=== PATIENT | female | born 1995 | race Caucasian/White ===

== ENCOUNTER 2024-04-01 23:46 | Emergency (ER) | payer OTHER, SELFPAY ==
--- NOTE | ~2024-04-01 | XR_ITS ---
Clinical Indication: Shortness of breath PA and lateral views of the chest: Comparison: None Findings: The lungs are clear, without evidence of focal consolidation or pleural effusion. Cardiome diastinal silhouette is within normal limits. Bones and soft tissues are unremarkable. Impression: Normal chest. Reviewed, dictated and finalized at [facility]. Impression: Normal chest.
[2024-04-01 23:47] VITALS: BP 112/78; PULSE 142; RESP 18; TEMP 37.1; O2SAT 99
[2024-04-02 00:15] LABS: Basophils Percent Auto 0.1 % (0.2-1.2); Eosinophils Absolute Auto 0.1 K/mm3 (0-0.3); Eosinophils Percent Auto 1.2 % (0-4.4); Hematocrit 39.5 % (37.0-47.0); Hemoglobin 13.4 g/dL (12.0-15.0); Immature Granulocyte Absolute 0.03 K/mm3 (0.00-0.031); Immature Granulocyte Percent A 0.4 % (0-0.5); Lymphocytes Absolute Auto 0.48 K/mm3 (0.9-3.2); Lymphocytes Percent Auto 6.2 % (18.3-44.2); Mean Corpuscular HGB Conc 33.9 g/dl (32-36); Mean Corpuscular Hemoglobin 29.8 pg (26-34); Mean Platelet Volume 9.4 fl (7.4-10.4); Monocytes Absolute Auto 0.6 K/mm3 (0.1-0.6); Monocytes Percent Auto 7.5 % (2.6-8.5); Neutrophils Absolute Auto 6.6 K/mm3 (1.3-6.7); Neutrophils Percent Auto 84.6 % (45.5-73.1); Platelet Count Result 258 k/mm3 (150-375); Red Blood Count 4.49 M/mm3 (4.2-5.4); Red Cell Distribution Width 11.9 % (11.5-14.5); White Blood Count 7.8 K/mm3 (4.5-10.0)
--- NOTE | 2024-04-02 00:27 | ECG_ITS ---
Test Date: 2024-04-02 00:00:27 Measurements Intervals [place] Rate: 131 P: 40 [place]: 154 QRS: 44 QRSD: 86 T: 59 QT: 333 QTc: 493 Interpretive Statements SINUS TACHYCARDIA NONSPECIFIC T-WAVE ABNORMALITY No previous ECG available for comparison Electronically Signed On 04-02-2024 14:42:27 CDT by Heron Diallo M.D.
--- NOTE | 2024-04-02 00:27 | PC.NURSE ---
pt in wheelchair to imaging at this time
[2024-04-02 00:34] LABS: Alanine Aminotransferase 28 U/L (6-35); Albumin Level 4.3 g/dL (3.5-5.1); Alkaline Phosphatase 49 U/L (38-126); Anion Gap 10 mmol/L (4-12); Aspartate Amino Transferase 26 U/L (14-36); Bilirubin,Total 0.6 mg/dL (0.2-1.3); Blood Urea Nitrogen 11 mg/dL (7-17); Calcium 9.3 mg/dL (8.4-10.2); Carbon Dioxide 22 mmol/L (22-30); Chloride 104 mmol/L (98-107); Estimated Glomerular Filt Rate > 60; Glucose 128 mg/dL (65-110); Potassium 3.5 mmol/L (3.4-5.0); Sodium 136 mmol/L (137-145)
[2024-04-02 00:51] LABS: Influenza A QL RT-PCR Negative (Negative); Influenza B QL RT-PCR Negative (Negative); RSV RNA, RT-PCR Negative (Negative); SARS-CoV-2 RNA PCR Positive (Negative)
[2024-04-02 02:45] VITALS: BP 109/77; PULSE 105; RESP 15; O2SAT 100; O2SAT 98
[2024-04-02] MEDS: BENZONATATE 100 MG CAPSULE 200 MG PO (03:00)
[2024-04-02] MEDS: PROCHLORPERAZINE EDISYLATE 10 MG/2 ML VIAL IV PUSH (03:01)
[2024-04-02] MEDS: diphenhydrAMINE HCl INJ 50 MG/ML VIAL IV PUSH (03:01)
[2024-04-02] MEDS: KETOROLAC 30 MG/ML VIAL (*BKC) IV PUSH (03:01)
--- NOTE | 2024-04-02 04:06 | ED.GENADULT ---
HPI - General Adult General Chief complaint: Upper Respiratory Infection Stated complaint: covid symptoms Time Seen by Provider: 04/02/24 02:27 History of Present Illness HPI narrative: Patient is a 28-year-old female who presents emergency department chief complaint of COVID patient reports that she was exposed about a week ago to COVID and now she is having body aches headaches shortness of breath cough feeling dizzy and nausea. Patient reports that she does not feel well reports that she was also feeling as though her heart was beating fast. Related Data Allergies Allergy/AdvReac Type Severity Reaction Status Date / Time martin pepper [green pepper] Allergy Mild Verified 04/02/10 20:27 Review of Systems Review of Systems: A 10 system review of systems was completed on the patient and is negative except for what is stated in the HPI. Nursing and ancillary documentation was reviewed. Exam Narrative: GENERAL: Well-appearing, well-nourished, and in no acute distress. HEAD: Normocephalic, atraumatic. EYES: PERRLA and EOMI. ENT: Nares clear, no rhinorrhea or epistaxis. Mucous membranes moist. NECK: Supple. CHEST: Clear to auscultation. No respiratory distress. HEART: Regular rate and rhythm. No murmur heard. Normal peripheral pulses. ABDOMEN: Soft, nontender, nondistended, normal active bowel sounds. EXTREMITIES: Normal range of motion. No edema. SKIN: Warm, dry, no rash. NEURO: No focal deficits. Alert and oriented x3. PSYCH: Normal mood and affect. Course Vital Signs Vital signs: Vital Signs Temperature 37.1 C 04/01/24 23:47 Pulse Rate 142 H 04/01/24 23:47 Respiratory Rate 18 04/01/24 23:47 Blood Pressure 112/78 04/01/24 23:47 Pulse Oximetry 99 04/01/24 23:47 Oxygen Delivery Room Air 04/01/24 23:47 Temperature 37.1 C 04/01/24 23:47 Pulse Rate 142 H 04/01/24 23:47 Respiratory Rate 18 04/01/24 23:47 Blood Pressure 112/78 04/01/24 23:47 Pulse Oximetry 99 04/01/24 23:47 Oxygen Delivery Room Air 04/01/24 23:47 Medical Decision Making MDM Narrative Medical decision making narrative: Differential diagnosis includes viral illness, he moved, dehydration, Chest x-ray showed no focal infiltrate COVID was positive Laboratory studies showed a white count of 7.8 electrolytes were otherwise within normal Patient received IV fluids antiemetics Toradol and antitussives. The patient is feeling much better this time will be discharged home to follow-up with primary care provider Vital Signs Vital Signs: Vital Signs Temperature 37.1 C 04/01/24 23:47 Pulse Rate 142 H 04/01/24 23:47 Respiratory Rate 18 04/01/24 23:47 Blood Pressure 112/78 04/01/24 23:47 Pulse Oximetry 99 04/01/24 23:47 Oxygen Delivery Room Air 04/01/24 23:47 Temperature 37.1 C 04/01/24 23:47 Pulse Rate 142 H 04/01/24 23:47 Respiratory Rate 18 04/01/24 23:47 Blood Pressure 112/78 04/01/24 23:47 Pulse Oximetry 99 04/01/24 23:47 Oxygen Delivery Room Air 04/01/24 23:47 Lab Data 04/02/24 00:07 04/02/24 00:08 Labs: Lab Results 04/01/24 04/02/24 04/02/24 Range/Units 23:55 00:07 00:08 WBC 7.8 (4.5-10.0) K/mm3 RBC 4.49 (4.2-5.4) M/mm3 Hgb 13.4 (12.0-15.0) g/dL Hct 39.5 (37.0-47.0) % MCV 88.0 (80-100) fl MCH 29.8 (26-34) pg MCHC 33.9 (32-36) g/dl RDW 11.9 (11.5-14.5) % Plt Count 258 (150-375) k/mm3 MPV 9.4 (7.4-10.4) fl Immature Gran % (Auto) 0.4 (0-0.5) % Neut % (Auto) 84.6 H (45.5-73.1) % Lymph % (Auto) 6.2 L (18.3-44.2) % [place] % (Auto) 7.5 (2.6-8.5) % Eos % (Auto) 1.2 (0-4.4) % Baso % (Auto) 0.1 L (0.2-1.2) % Lymph # (Auto) 0.48 L (0.9-3.2) K/mm3 [place] # (Auto) 0.6 (0.1-0.6) K/mm3 Eos # (Auto) 0.1 (0-0.3) K/mm3 Baso # (Auto) 0.0 (0.0-0.1) K/mm3 Abs Immat Gran (auto) 0.03 (0.00-0.031) K/mm3 Absolute Neuts (
[2024-04-02 04:29] VITALS: BP 102/68; PULSE 103; RESP 15; TEMP 37.3; O2SAT 98
== END 2024-04-02 04:31 | disposition home or self-care (01) ==
PROVIDERS: Emergency Provider Emergency Medicine
DX: U07.1 COVID-19 (principal); J06.9 Acute upper respiratory infection, unspecified
CPT/HCPCS: 36415; 71046; 80053; 85025; 87637; 93005; 96374; 96375; 99284; A9270; J0780; J1200; J1885

== ENCOUNTER 2024-08-08 08:32 | Emergency (ER) | payer OTHER, SELFPAY ==
--- NOTE | ~2024-08-08 | XR_ITS ---
EXAMINATION: XR sacrum coccyx min 2V DATE: 08/08/2024 09:27 INDICATION: Tailbone injury post fall TECHNIQUE: AP view of the sacrum, AP view of the coccyx and lateral views of the sacrum and coccyx we re obtained. COMPARISON: None. FINDINGS: Nondisplaced fracture with interruption of the anterior cortical line and subtle linear lucency exten ding across the caudal aspect of the sacrum on the lateral projection at the level of S4-S5. There is 2 mm caudal subluxation of the coccyx with respect to the distal sacrum but without evident fracture and with relatively uniform disc space most likely developmental although could not absolutely exclu de an age-indeterminate traumatic subluxation. 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 The sacroiliac and bilateral hip joint spaces appear relatively preserved. IMPRESSION: 1. Nondisplaced fracture at S4-S5 Reviewed, dictated and finalized at location [facility]
[2024-08-08 08:39] VITALS: BP 130/94; PULSE 100; RESP 14; TEMP 36.8; O2SAT 100
[2024-08-08] MEDS: LIDOCAINE 5% PATCH 1 PATCH TRANSDERM (09:05)
[2024-08-08] MEDS: ACETAMINOPHEN 500 MG TABLET 1000 MG PO (09:06)
[2024-08-08 10:19] VITALS: BP 129/85; PULSE 67; RESP 15; O2SAT 99
--- NOTE | 2024-08-08 16:19 | ED.GENADULT ---
HPI - General Adult General Chief complaint: Extremity Injury, Lower Stated complaint: FALL, back pain Time Seen by Provider: 08/08/24 08:47 History of Present Illness HPI narrative: patient fell at work when a cart got pulled from under her, and landed on her tailbone, has been hurting quite a bit especially to sit on it. No difficulty walking, no numbness or weakness or tingling, or difficulty with urinating Related Data Allergies Allergy/AdvReac Type Severity Reaction Status Date / Time No Known Allergies Allergy Verified 08/08/24 08:44 Exam Narrative: EXAMINATION OF ORGAN SYSTEMS/BODY AREAS: Constitutional: Vital signs per nursing GENERAL:[No acute distress, non-toxic appearing.] HEAD: Normal with no signs of head trauma. EYES: EOMI, conjunctiva normal ENT: Hearing grossly intact LUNGS: Nonlabored breathing. HEART: [Regular rate and rhythm] ABD: [Soft], [nontender to palpation] EXT: Normal range of motion; able ambulate. Some tenderness to left side tailbone SKIN: [No rashes or lesions.] NEURO: [Alert and oriented x 3. No gross focal sensory or strength deficits.] PSYCH: Normal affect Course Vital Signs Vital signs: Vital Signs Temperature 98.3 F 08/08/24 08:39 Pulse Rate 100 08/08/24 08:39 Respiratory Rate 14 08/08/24 08:39 Blood Pressure 130/94 H 08/08/24 08:39 Pulse Oximetry 100 08/08/24 08:39 Oxygen Delivery Room Air 08/08/24 08:39 Temperature 98.3 F 08/08/24 08:39 Pulse Rate 67 08/08/24 10:19 Respiratory Rate 15 08/08/24 10:19 Blood Pressure 129/85 08/08/24 10:19 Pulse Oximetry 99 08/08/24 10:19 Oxygen Delivery Room Air 08/08/24 08:39 Medical Decision Making [facility] Narrative Medical decision making narrative: patient presents with left-sided tailbone pain after injury, she is well-appearing, no neurovascular deficits Including no saddle anesthesia, difficulty ambulating, difficulty with urination. pain medication given, x-ray unfortunately does show possible lateral sacral fracture. discussed with patient, give pain medication and work note and have her follow-up with her PCP with strict return precautions. She is agreeable to this plan. Vital Signs Vital Signs: Vital Signs Temperature 98.3 F 08/08/24 08:39 Pulse Rate 100 08/08/24 08:39 Respiratory Rate 14 08/08/24 08:39 Blood Pressure 130/94 H 08/08/24 08:39 Pulse Oximetry 100 08/08/24 08:39 Oxygen Delivery Room Air 08/08/24 08:39 Temperature 98.3 F 08/08/24 08:39 Pulse Rate 67 08/08/24 10:19 Respiratory Rate 15 08/08/24 10:19 Blood Pressure 129/85 08/08/24 10:19 Pulse Oximetry 99 08/08/24 10:19 Oxygen Delivery Room Air 08/08/24 08:39 Discharge Plan Discharge Clinical Impression: Closed sacral fracture Patient Disposition: Home, Self-Care Condition: Stable Instructions: Sacral Fracture (ED) Additional Instructions: use ice, get a donut pillow to sit on, and take pain medications as needed, follow-up with your primary care doctor if you start having any concerning issues such as increasing pain, new numbness or weakness to your legs, come back to the ER immediately. Patient Language: Surinamese Prescriptions: New acetaminophen [Tylenol Extra Strength] 500 mg tablet 1,000 mg PO Q6H PRN (Reason: pain) Qty: 50 0RF lidocaine 5 % adhesive patch,medicated 1 patch topical DAILY Qty: 15 0RF Rx Instructions: leave on most painful area for up to 12 hrs ibuprofen 600 mg tablet 600 mg PO TID PRN (Reason: fever or pain) Qty: 30 0RF oxycodone 5 mg capsule 5 mg PO Q8H PRN (Reason: pain) Qty: 14 0RF No Action benzonatate 200 mg capsule 200 mg PO TID PRN (Reason: cough) Qty: 21 0RF ondansetron 4 mg tablet,disintegrating 4 mg PO Q8H PRN (Reason: nausea and vomiting) Qty: 10 0RF Follow-up/Referrals: UNKNOWN,DOCTOR [Primary Care Provider] - Stand Alone Forms: Work/School Release IP
== END 2024-08-08 10:21 | disposition home or self-care (01) ==
PROVIDERS: Emergency Provider Emergency Medicine
DX: S32.19XA Other fracture of sacrum, initial encounter for closed fracture (principal); W17.89XA Other fall from one level to another, initial encounter
CPT/HCPCS: 72220; 99283; A9270

== ENCOUNTER 2024-11-15 02:53 | Emergency (ER) | payer OTHER, SELFPAY ==
[2024-11-15 02:54] VITALS: BP 118/84; PULSE 94; RESP 16; TEMP 36.1; O2SAT 98
--- OUTSIDE RECORDS SUMMARY | 2024-11-15 02:56 | XMS_ITS | Data Portability ---
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 [address], 02/20/2023 15:11:41 02/21/20 23 02/20/2023 urina lysis , dipst ick Protein Negati ve Not Available [address], [address], 02/20/2023 15:11:41 02/21/20 23 02/20/2023 urina lysis , dipst ick pH 5.0 Not Available [address], [address], 02/20/2023 15:11:41 02/21/20 23 02/20/2023 urina lysis , dipst ick Blood Negati ve Not Available [address], [address], 02/20/2023 15:11:41 02/21/20 23 02/20/2023 urina lysis , dipst ick Specific [place] 1.000 Not Available [address], [address], 02/20/2023 15:11:41 02/21/20 23 02/20/2023 urina lysis , dipst ick Ketone Negati ve Not Available [address], [address], 02/20/2023 15:11:41 02/21/20 23 02/20/2023 urina lysis , dipst ick Bilirubin Negati ve Not Available [address], [address], 02/20/2023 15:11:41 02/21/20 23 02/20/2023 urina lysis , dipst ick Glucose Negati ve Not Available [address], [address], 02/20/2023 15:11:41 02/21/20 23 02/20/2023 urina lysis , dipst ick Appearance Clear Not Available [address], [address], 02/20/2023 15:11:41 02/21/20 23 02/20/2023 urina lysis , dipst ick Color Yellow Not Available [address], [address], 02/20/2023 15:11:41 Result Notes None recorded. Problems No Known Problems Procedures Surgical History Date Name Laterality Status Provider Name and Address Organization Details Recorded Time 3 Nexplanon Insertion cancelled [facility] [employer] Plan IV 03/07/2023 16:24:35 3 Date of Last Pap Smear [facility] [address] [facility], [place], [address], [facility] [employer] IV 01/10/2023 17:09:40 Imaging Results None recorded. Procedure Notes None recorded. Medical Equipment None Reported. Allergies No known drug allergies Medications Name Sig Start Date Stop Date Status Note LastModified by Organization Details LastModified Time amoxicill in 500 mg capsule TAKE ONE CAPSULE BY MOUTH TWICE DAILY FOR 10 DAYS 01/10 completed Not Available Not Available Not Available metformin 500 mg tablet 1 PO daily 05/19 completed Metformi n HCl 500mg Tablet RxNorm: 761976 Allow Substitu tion: True Refill Denied: No For Problem: Missed period Not Available Not Available Not Available terconazo le 0.4 % vaginal cream insert 1 applicat orful by vaginal route once daily at bedtime for 7 days 06/12 completed terconaz ole 0.4 % Vaginal Cream RxNorm: 687169 Allow Substitu tion: True Refill Denied: No Edited by: chayo rosado([facility] Kalyn ) on 06/12/20 Stopped by: chayo rosado([facility] ) on 06/12/20 Not Available Not Available Not Available Aviane 0.1 mg-20 mcg tablet Take 1 tablet(s ) by mouth daily as directed . 01/18 completed Aviane 28 20mcg/0. 1mg Tablet Allow Substitu tion: True Refill Denied: No Not Available Not Available Not Available Vitamin B-6 25 mg tablet Take 1 tablet PO three times daily 11/05 completed Vitamin B6 25mg Tablet Allow Substitu tion: True Refill Denied: No Not Available Not Available Not Available fluconazo le 150 mg tablet TAKE 1 TABLET BY MOUTH NOW. MAY REPEAT IN 3 DAYS IF NO RESPONSE 03/07 completed Not Available Not Available Not Available clomiphen e citrate 50 mg tablet 1 po days 3-7 of cycle 03/20 completed Clomiphe ne Citrate 50mg Tablet Allow Substitu tion: True Refill Denied: No Not Available Not Available Not Available hydrocodo ne 5 mg-acetam inophen 325 mg tablet 1 p.o. q12h prn 08/02 completed Not Available Not Available Not Available ondansetr on HCl 4 mg tablet take 2 tablets (8 mg) by oral route every 8 hours as needed for nausea/v omiting 08/31 completed ondanset vilma HCL 4 mg oral tablet RxNorm: 603384 Allow Substitu tion: True Refill Denied: No Edited by: michelle(Sophia Jimenez ) on 08/31/19 Stopped by: michelle(Sophia Jimenez ) on 08/31/19 Not Available Not Available Not Available prednison e 20 mg tablet TAKE 2 TABLETS BY MOUTH EVERY DAY WITH FOOD FOR 4 DAYS. DO NOT TAKE WITH ASPIRIN OR NSAIDS SUCH ALEVE OR IBUPROFE N ETC 01/10 completed Not Available Not Available Not Available terconazo le 0.8 % vaginal cream 1 applicat orful 0.8% cream intravag inally at bedtime for 3 days 12/20 completed Terconaz ole 0.8% Vaginal Cream RxNorm: 025039 Allow Substitu tion: True Refill Denied: No Not Available Not Available Not Available clotrimaz ole 1 % vaginal cream Apply to vulva QHS x5 nights 05/31 completed Clotrima zole 1% Vaginal Cream Allow Substitu tion: True Refill Denied: No Not Available Not Available Not Available metronida zole 500 mg tablet TAKE 1 TABLET BY MOUTH EVERY 12 HOURS FOR 7 DAYS 03/07 completed Not Available Not Available Not Available sulfameth oxazole 800 mg-trimet hoprim 160 mg tablet take 1 tablet by oral route 2 times per day for 3 days 01/20 completed sulfamet hoxazole -trimeth oprim 800-160 mg oral tablet RxNorm: 068595 Allow Substitu tion: True Refill Denied: No Edited by: diane(Alexander George ) on 01/21/20 Stopped by: diane(Alexander George ) on 01/21/20 Not Available Not Available Not Available Reglan 10 mg tablet 1 tab po q 8hrs prn 07/30 completed Reglan 10mg Tablet RxNorm: 103101 Allow Substitu tion: True Refill Denied: No Not Available Not Available Not Available tramadol 50 mg tablet TAKE 1 TABLET BY MOUTH EVERY 6 HOURS 01/12 completed Not Available Not Available Not Available Macrobid 100 mg capsule take 1 capsule (100 mg) by oral route 2 times per day with food for 7days 06/17 completed Macrobid 100 mg oral capsule RxNorm: 117841 Allow Substitu tion: True Refill Denied: No Edited by: praveena andrews(Shira Schultz ) on 06/17/20 Stopped by: praveena andrews(Shira Schultz ) on 06/17/20 Not Available Not Available Not Available Vitamin tablet Take 1 taablet by mouth daily. 07/19 completed Multivit shipman Tablet Allow Substitu tion: True Refill Denied: No Not Available Not Available Not Available nystatin- triamcino lone 100,000 unit/gram -0.1 % topical ointment apply to the affected area(s) by topical route 2 times per day 07/29 completed nystatin -triamci nolone 100,000- 0.1 unit/gra m-% Topical Ointment RxNorm: 3621070 Allow Substitu tion: True Refill Denied: No Edited by: Dionisio Bahena ) on 07/29/20 Stopped by: megan cali(Dionisio Hairston ) on 07/29/20 Not Available Not Available Not Available Zofran 8 mg tablet 1/2 tab po q 6 -8hrs PRN 11/04 completed Zofran 8mg Tablet RxNorm: 193638 Allow Substitu tion: True Refill Denied: No Not Available Not Available Not Available amoxicill in 875 mg tablet TAKE 1 TABLET BY MOUTH EVERY 12 HOURS FOR 10 DAYS 08/02 completed Not Available Not Available Not Available Metrogel Vaginal 0.75 % (37.5 mg/5 gram) insert 1 applicat orful (37.5 mg) by vaginal route once daily at bedtime for 5 days 12/06 completed Metrogel Vaginal 0.75 % Vaginal Gel RxNorm: 792353 Allow Substitu tion: True Refill Denied: No Edited by: Kelly Black ) on 12/07/19 Stopped by: Kelly Black ) on 12/07/19 Not Available Not Available Not Available Keflex 250 mg capsule take 1 capsule (250 mg) by oral route every 6 hours 01/07 completed Keflex 250 mg oral capsule RxNorm: 692164 Allow Substitu tion: True Refill Denied: No Edited by: mirna(Sharita Llamas ) on 01/08/20 Stopped by: mirna(Sharita Llamas ) on 01/08/20 Not Available Not Available Not Available cephalexi n 500 mg capsule TAKE 1 CAPSULE BY MOUTH THREE TIMES DAILY 02/20 completed Not Available Not Available Not Available Cipro 500 mg tablet Take 1 tab bid for 3 days for her UTI 11/04 completed Cipro 500mg Tablet RxNorm: 484393 Allow Substitu tion: True Refill Denied: No For Problem: UTI Not Available Not Available Not Available vitamin-f errous fumarate 28 mg iron-foli c acid 800 mcg tablet 1 tab po every day 12/21 completed vit-iron fum-foli c ac 28 mg iron- 800 mcg oral tablet Allow Substitu tion: True Refill Denied: No Edited by: diane(Alexander George ) on 12/22/19 Stopped by: diane(Alexander George ) on 12/22/19 Not Available Not Available Not Available misoprost ol [address] 4 tablets vaginall y and repeat in 12 hours if no cramping 12/06 completed miSOPROS pardeep 200 mcg oral tablet RxNorm: 478617 Allow Substitu tion: True Refill Denied: No Edited by: Kelly Black ) on 12/07/19 Stopped by: Kelly Black ) on 12/07/19 Not Available Not Available Not Available Zofran ODT 8 mg disintegr ating tablet Dissolve 1 tablet PO q 6 hours PRN nausea 10/31 completed Zofran ODT 8mg Tablets, Orally Disinteg rating RxNorm: 068986 Allow Substitu tion: True Refill Denied: No Not Available Not Available Not Available hydroxyzi ne HCl 25 mg tablet one tablet by mouth qid prn anxiety 03/16 completed Hydroxyz ine HCl 25mg Tablet Allow Substitu tion: True Refill Denied: No Not Available Not Available Not Available nystatin 100,000 unit/gram topical powder APPLY TO THE AFFECTED AREA(S) BY TOPICAL ROUTE 2 TIMES PER DAY 02/20 completed Not Available Not Available Not Available ibuprofen 600 mg tablet TAKE 1 TABLET BY MOUTH EVERY 6 HOURS NEEDED FOR MILD PAIN 01/12 completed Not Available Not Available Not Available albuterol sulfate HFA 90 mcg/actua tion aerosol inhaler INHALE 2 PUFFS BY MOUTH EVERY 4 HOURS NEEDED 02/20 completed Not Available Not Available Not Available Cipro 250 mg tablet 1 tab po bid x 3 days 01/12 completed Cipro 250mg Tablet RxNorm: 287719 Allow Substitu tion: True Refill Denied: No Not Available Not Available Not Available amoxicill in 875 mg-potass ium clavulana te 125 mg tablet TAKE 1 TABLET BY MOUTH EVERY 12 HOURS FOR 10 DAYS 01/10 completed Not Available Not Available Not Available amoxicill in 500 mg-potass ium clavulana te 125 mg tablet TAKE 1 TABLET BY MOUTH EVERY 12 HOURS FOR 7 DAYS 09/11 completed Not Available Not Available Not Available hydroxyzi ne pamoate 25 mg capsule TAKE 1 CAPSULE BY MOUTH EVERY 6 HOURS NEEDED 01/12 completed Not Available Not Available Not Available NuvaRing 0.12 mg-0.015 mg/24 hr vaginal Insert 1 vaginal ring in vagina for 28 days then remove the ring and replace with another ring. 04/07 completed NuvaRing 0.015mg/ 0.12mg Vaginal Ring RxNorm: 4397975 Allow Substitu tion: True Refill Denied: No For Problem: Initiati on of other contrace ptive measures Not Available Not Available Not Available azithromy alana 500 mg tablet take 2 tabs ( 1 gm) po once 01/20 completed azithrom ycin 500 mg oral tablet RxNorm: 267210 Allow Substitu tion: True Refill Denied: No Edited by: diane(Alexander George ) on 01/21/20 Stopped by: diane(Alexander George ) on 01/21/20 21 Not Available Not Available Not Available escitalop marmiar 10 mg tablet TAKE 1 TABLET BY MOUTH AT BEDTIME active Not Available Not Available No t Available Nataly 0.35 mg tablet Take 1 tablet(s ) by mouth daily as directed . 02/16 completed Nataly 0.35mg Tablet Allow Substitu tion: True Refill Denied: No Not Available Not Available Not Available Zofran 07/10 completed Zofran RxNorm: 980175 Allow Substitu tion: True Refill Denied: No Not Available Not Available Not Available Compazine 1 tab po q6hr prn nausea 12/02 completed Compazin e 10mg Tablets RxNorm: 437430 Allow Substitu tion: True Refill Denied: No Not Available Not Available Not Available BuSpar Take 1/2 tablet(s ) by mouth bid 04/01 completed BuSpar 15mg Tablet RxNorm: 900983 Allow Substitu tion: True Refill Denied: No Not Available Not Available Not Available 07/08 completed Allow Substitu tion: False Refill Denied: No Refill DateOccu rred: 12/16/19 20 Edited by: Dionisio Bahena ) on 07/08/20 Stopped by: Dionisio Bahena ) on 07/08/20 20 Not Available Not Available Not Available Implanon UUD (USE DIRECTED ) left arm 08/01 completed Implanon 68mg Implant RxNorm: 662217 Allow Substitu tion: True Refill Denied: No Refill DateOccu rred: 09/18/19 13 Not Available Not Available Not Available doxylamin e succinate 1/2 tab po tid prn nausea 12/03 completed Doxylami ne Succinat e 25mg Tablet Allow Substitu tion: True Refill Denied: No Not Available Not Available Not Available Nexplanon 68 mg subdermal implant Inject by subcutan eous route. active Not Available Not Available No t Available ID NOW COVID-19 Test Kit TEST DIRECTED 08/02 completed Not Available Not Available Not Available COVID-19 test specimen collectio n TEST DIRECTED TODAY 08/02 completed Not Available Not Available Not Available Nextstell is 3 mg-14.2 mg (28) tablet Take 1 tablet every day by oral route for 21 days. 02/20 completed Not Available Not Available Not Available BinaxNOW COVID-19 Ag Self Test kit TEST DIRECTED TODAY 01/10 completed Not Available Not Available Not Available Vitals Date Recorded Body height Body mass index (BMI) Body weight Body temperature Systolic blood pressure Diastolic blood pressure Provider Name and Address Organization Details Last Updated DateTime 1 149.86 cm 33.7 kg/m2 40815.9 3 g 97.9 [degF] 118 mm[Hg] 72 mm[Hg] Brie Strange [facility] 1 12:11:50 Date Recorded Body height Body mass index (BMI) Body weight Body temperature Systolic blood pressure Diastolic blood pressure Provider Name and Address Organization Details Last Updated DateTime 2 149.86 cm 34.7 kg/m2 02288.8 9 g 97 [degF] 124 mm[Hg] 80 mm[Hg] Brie Strange [facility] 2 10:50:03 Date Recorded Body height Body mass index (BMI) Body weight Body temperature Provider Name and Address Organization Details Last Updated DateTime 01/10/2023 149.86 cm 32.1 kg/m2 80760.47 g 97.5 [degF] Saskia Gonzales [facility] 01/10/2023 17:02:35 Date Recorded Body height Body mass index (BMI) Body weight Systolic blood pressure Diastolic blood pressure Provider Name and Address Organization Details Last Updated DateTime 02/20/2023 149.86 cm 30.3 kg/m2 09886.86 g 122 mm[Hg] 80 mm[Hg] Glendy Mcrae [facility] 3 15:06:33 Social History Question Answer Notes LastModified by Organizat ion Details LastModified Time Tobacco Smoking Status Current Every Day Smoker Brie kaye [facility] 08/02/2021 12:19:27 What Is Your Level Of Alcohol Consumption? Occasional Information not available 08/02/2021 How Many Times Per Week Do You Consume Alcohol? 1-2 Times Per Week Information not available 08/02/2021 If You Are , What Was Your Level Of Alcohol Consumption Prior To ? None Information not available 08/02/2021 Are You Blind Or Do You Have Difficulty Seeing? No Information not available 08/02/2021 Are You Currently Employed? Yes [email or web address] Information not available 01/10/2023 Are You Deaf Or Do You Have Serious Difficulty Hearing? No Information not available 08/02/2021 What Type Of Diet Are You Following? REGULAR Information not available 08/02/2021 What Is The Highest Grade Or Level Of School You Have Completed Or The Highest Degree You Have Received? [id number] [email or web address] Information not available 01/10/2023 How Many Children Do You Have? 0 [email or web address] Information not available 03/07/2023 What Is Your Relationship Status? Single Information not available 08/02/2021 Are You Sexually Active? Yes Information not available 08/02/2021 How Much Tobacco Do You Smoke? 0.25 PPD Information not available 08/02/2021 Do You Use Any Illicit Or Recreational Drugs? No Information not available 08/02/2021 Do You Or Have You Ever Used Any Other Forms Of Tobacco Or Nicotine? No Information not available 08/02/2021 Sex: Female Functional Status Question Answer Note LastModified by Organization D etails LastModified Time What is your exercise level? None Information not available 08/02/2021 Mental Status None recorded. Family History Relationship Description Onset Age of this Age Resolved Age Notes LastModified by Organization Details LastModified Time Father No current problems or disability [email or web address] Not available 01/10 14:35:56 Mother No current problems or disability [email or web address] Not available 01/10 14:35:56 Medical History Condition Response Other Cancer N High Blood Pressure N Colon Cancer N Cytomegalovirus N Hyperthyroidism N Breast Cancer N MRSA N Herpes (HSV) N Blood Transfusion N Lung Cancer N Depression N Hypothyroidism N Incontinence N Panic Attacks N Neurological Disorder N Deep Vein Thrombosis N Anxiety Disorder N Autoimmune disease N Arthritis N Tuberculosis/Positive PPD N Shingles N Polycystic Ovarian Syndrome N Cervical Cancer N Hematuria N Chlamydia N Stroke N Varicosities N Seasonal allergies N Crohn's Disease N Alzheimer's/Dementia N COPD/Emphysema N Endometriosis N HPV/Genital Warts N IBS (Irritable Bowel Syndrome) N History of Abnormal Pap N High Cholesterol N Liver Disease N Kidney Infection N Fibromyalgia N Ulcer N Kidney Disease N HIV N Gallbladder disease N Sickle Cell Disease/Trait N Von Willebrand disease N ADD/ADHD N Eating Disorder N Anemia N Diabetes Mellitus (non-insulin dependent ) N Multiple Sclerosis N Ovarian Problems N Gonorrhea N Frequent Urinary Tract infections N Osteopenia N Headaches/migraines N GERD (reflux) N Ovarian Cancer N Diabetes (insulin dependent) N Seizures/Epilepsy N Fibroids N Asthma N Heart Attack N Lupus N Endometrial Cancer N Rubella N Blood Clotting Disorder N Bipolar Disorder N Diabetes Mellitus (during ) N Ulcerative Colitis N Hepatitis N Heart Disease N Pulmonary Embolism N RPR N Chicken Pox N Osteoporosis N Gynecological History Statement/Question Response Date of last HPV Most Recent Bone Density HPV Vaccine N Date of Last Pap Smear 01/10/2023 Most Recent Mammogram Current Control Method Implant Age at Menarche 9 Obstetrics History GPAL:G 6 P 3 0 3 3 Type Value Full Term 3 Induced 3 Living 3 Total 6 Past Encounters Encounter ID Performer Location Encounter Start Date Encounter Closed Date Diagnosis/Indication Diagnosis SNOMED-CT Code Diagnosis ICD10 Code Diagnosis Note [id number] SANDRA Yusuf [facility] [address] [place] [address] 08/02/2021 11:15:56 08/18/2021 11:59:54 Vaginal discharge 708483777 N89.8 N76.0 Screening for disorder 075119022 Z11.3 N89.9 Lesion of vulva 52740420 6 N90.89 [id number] SANDRA Yusuf [facility] h [address] [place] [address] 01/12/2022 10:38:31 01/12/2022 11:47:50 Vaginal discharge 726481193 N89.8 N76.0 Venereal d isease screening 817712051 Z11.3 Increased frequency of urination 990786606 R35.0 [id number] [facility] [address] [place] [address] 01/10/2023 16:39:10 01/20/2023 13:44:25 Gynecologic examination 60023919 Z01.419 Screening for malignant neoplasm of cervix 267814521 Z12.4 Contracept ion education 968220028 Z30.09 Contracept darian counseling : Discussed options including OCPs, NuvaRing, Nexplanon, hormonal and copper IUDs. Discussed risks, efficacy, noncontrac eptive benefits, and side effects of each option, including risk of VTE with hormonal contracept ion and uterine perforatio n, expulsion, infection with IUD. Pt interested in getting her tubes tied. Will make appointmen t with MD. Venereal d isease screening 700102803 Z11.3 Abnormal urine odor 8769 003 R82.90 Candidiasis of skin 4988 3006 B37.2 Depression screening 171 248140 Z13.31 [id number] Sharita [facility] [address] [place] [address] 02/20/2023 14:49:43 02/20/2023 15:31:02 Acute vaginitis 60199963 N76.0 Increased frequency of urination 366982831 R35.0 Urine dip negative Vaginal odor 713770431 N 89.8 - Reviewed vulvar hygiene: avoid tight or moist clothing, soaps, Vagisil and other wipes, cotton underwear only and sleep without, unscented detergent - RTO for annual or as needed Education about sexually transmitted disease prevention 109004788 Z70.8 Discussed the various types of STDs, related symptoms and the potential consequenc es (including effects on fertility) of STD infections . Reviewed ways to limit exposure and prevention techniques . Contracept ion care management 186780760 Z30.9 Contracept darian counseling : Discussed options including OCPs, NuvaRing, Nexplanon, hormonal and copper IUDs. Discussed risks, efficacy, noncontrac eptive benefits, and side effects of each option, including risk of VTE with hormonal contracept ion and uterine perforatio n, expulsion, infection with IUD.She is interested in Nexplanon, however, she would also like to consider permanent sterilizat ion. Consent obtained Health Concerns Section Related Observation LastModified by Organization Detai ls LastModified Time None Recorded Concern Status LastModified by Organization Details LastModified Time None Recorded Advance Directives Directive None Recorded Payers Encounter Date Sequence Insurance Name Policy Number Policy Gil Covered Member ID Gil Member ID Guarantor Name 08/02/2021 1 [place] 02/25/21 (MEDICAID REPLACEMENT - HMO) Lindsey Lamar [id number] Lindsey Lamar 01/12/2022 1 [place] 02/25/21 (MEDICAID REPLACEMENT - HMO) Lindsey Lamar [id number] Lindsey Lamar 01/10/2023 1 [place] 02/25/21 (MEDICAID REPLACEMENT - HMO) Lindsey Lamar [id number] Lindsey Lamar 02/20/2023 1 [place] 02/25/21 (MEDICAID REPLACEMENT - HMO) Lindsey Lamar [id number] Lindsey Lamar Notes Date Note Type Note Provider Name and Address Organization Details Recorded Time 08/02/2021 text/html Vaginal/Vulvar ProblemReported bypatient.Location: [facility] Duration:present for 1-7 days Quality:itching; painful Context:sexually active Associated Symptoms:vaginal discharge-white and fishy smell SANDRA Yusuf [address] [place] [address], [address], [facility] 08/02/2021 21:51:48 01/12/2022 text/html Vaginal/Vulvar ProblemReported bypatient.Location:[facility] Duration:present for 1-7 days Quality:itching Context:sexually active; current contraception: (none); condom use: yes Associated Symptoms:no vaginal irritation; no vaginal pain; no vulvar itching/irritation; no vulvar swelling/erythema; no vulvar pain; no vulvar lesions; no pelvic pain; no dyspareunia; no dysuria; no fever; no abdominal pain;vaginal itching Lindsey presents with c/o vaginal itchingDesires STI screeningc/o urinary frequency SANDRA Yusuf [address] [place], [address], [facility] 01/15/2022 18:07:03 01/10/2023 text/html Annual GYNReport ed bypatient.Menstrual cycle:Normal menses Urinary symptoms:No hematuria; No incontinence Vulva:No genital lesion Vagina:Normal vaginal discharge Breast:No breast pain; No breast lump; No nipple discharge Sexual complaints:No sexual complaints; No pain during intercourse; Normal libido Menopausal Symptoms:No menopausal symptoms; Normal vaginal lubrication Psychological symptoms:No depression; No anxiety; No PMDD Lindsey is here for her annualshe is wanting her regular STD screening doneshe mentioned she has a small odor to her urine, thinking she may have a UTI ALYSSA MONTANEZ, [facility] [address] [place], [address], [facility] [employer] Business Plan 01/16/2023 15:57:52 02/20/2023 text/html Radha is here f or c/o vaginal discharge, itching/odor x 2 weeks. She recently re-entered into a relationship. She is sexually active. She is using condoms, however, it broke recently. Her last pap was 01/10/23. She is currently interested in discussing her control options. She experiences urinary frequency on occasion. She denies dyrusia/hesitancy SANDRA Adam [address] [facility], [place], [address], [facility] Maya's Mom IV 02/20/2023 15:30:57 OBGyn Episode Ob Episode Information Episode Created Date Number of Fetuses Patient Bloodtype Patient rh Status Prepregnancy Weight lbs Domestic Partner Domestic Partner Phone Father Name Mold Filling Operator Status 11/12/19 22 1 CLOSED Fetus Data First Name Last Name Admitted to NICU Weight (g) Sex Living Outcome Pediatric Complications Fetus ID Race Codes Race Delivery Type 3628.73 6 M [id number] Moreno Calculation Initial Moreno Date Initial Exam Date Initial Exam Provider Initial Ultrasound Date Last Menstrual Period Date Ultra Sound Weeks Gestation 0 Eighteen To Twenty Week Moreno Update Ultra Sound Date Fundal Height At Umbil Quickening Date Ultra Sound Latest Weeks Gestation Final Moreno Confirmed By Final Moreno Confirmed Date Final Moreno Date Ultra Sound Latest Days Gestation 0 0 Menstrual History Last Menstrual Date Menses Monthly On Bcp Conception Prior Menses Frequency Hcg Plus Date Menarche Onset Age Delivery Information Delivery Date Delivery Type Labor Anesthesia Weeks Gestation Incision Type Labor Labor Length Hrs Delivered By Post Complications Tubal Sterilization Discharge Date Comments 4 40 false Discharge Information Feeding Method Contraceptive Method Maternal HG B and HCT Levels Ob Episode Information Episode Created Date Number of Fetuses Patient Bloodtype Patient rh Status Prepregnancy Weight lbs Domestic Partner Domestic Partner Phone Father Name Mold Filling Operator Status 11/12/19 22 1 CLOSED Fetus Data First Name Last Name Admitted to NICU Weight (g) Sex Living Outcome Pediatric Complications Fetus ID Race Codes Race Delivery Type [id number] Moreno Calculation Initial Moreno Date Initial Exam Date Initial Exam Provider Initial Ultrasound Date Last Menstrual Period Date Ultra Sound Weeks Gestation 0 Eighteen To Twenty Week Moreno Update Ultra Sound Date Fundal Height At Umbil Quickening Date Ultra Sound Latest Weeks Gestation Final Moreno Confirmed By Final Moreno Confirmed Date Final Moreno Date Ultra Sound Latest Days Gestation 0 0 Menstrual History Last Menstrual Date Menses Monthly On Bcp Conception Prior Menses Frequency Hcg Plus Date Menarche Onset Age Delivery Information Delivery Date Delivery Type Labor Anesthesia Weeks Gestation Incision Type Labor Labor Length Hrs Delivered By Post Complications Tubal Sterilization Discharge Date Comments 5 None 14 false Discharge Information Feeding Method Contraceptive Method Maternal HG B and HCT Levels Ob Episode Information Episode Created Date Number of Fetuses Patient Bloodtype Patient rh Status Prepregnancy Weight lbs Domestic Partner Domestic Partner Phone Father Name Mold Filling Operator Status 11/12/19 22 1 CLOSED Fetus Data First Name Last Name Admitted to NICU Weight (g) Sex Living Outcome Pediatric Complications Fetus ID Race Codes Race Delivery Type [id number] Moreno Calculation Initial Moreno Date Initial Exam Date Initial Exam Provider Initial Ultrasound Date Last Menstrual Period Date Ultra Sound Weeks Gestation 0 Eighteen To Twenty Week Moreno Update Ultra Sound Date Fundal Height At Umbil Quickening Date Ultra Sound Latest Weeks Gestation Final Moreno Confirmed By Final Moreno Confirmed Date Final Moreno Date Ultra Sound Latest Days Gestation 0 0 Menstrual History Last Menstrual Date Menses Monthly On Bcp Conception Prior Menses Frequency Hcg Plus Date Menarche Onset Age Delivery Information Delivery Date Delivery Type Labor Anesthesia Weeks Gestation Incision Type Labor Labor Length Hrs Delivered By Post Complications Tubal Sterilization Discharge Date Comments 6 None 8.2 false Discharge Information Feeding Method Contraceptive Method Maternal HG B and HCT Levels Ob Episode Information Episode Created Date Number of Fetuses Patient Bloodtype Patient rh Status Prepregnancy Weight lbs Domestic Partner Domestic Partner Phone Father Name Mold Filling Operator Status 11/12/19 22 1 CLOSED Fetus Data First Name Last Name Admitted to NICU Weight (g) Sex Living Outcome Pediatric Complications Fetus ID Race Codes Race Delivery Type 3628.73 6 F [id number] Moreno Calculation Initial Moreno Date Initial Exam Date Initial Exam Provider Initial Ultrasound Date Last Menstrual Period Date Ultra Sound Weeks Gestation 0 Eighteen To Twenty Week Moreno Update Ultra Sound Date Fundal Height At Umbil Quickening Date Ultra Sound Latest Weeks Gestation Final Moreno Confirmed By Final Moreno Confirmed Date Final Moreno Date Ultra Sound Latest Days Gestation 0 0 Menstrual History Last Menstrual Date Menses Monthly On Bcp Conception Prior Menses Frequency Hcg Plus Date Menarche Onset Age Delivery Information Delivery Date Delivery Type Labor Anesthesia Weeks Gestation Incision Type Labor Labor Length Hrs Delivered By Post Complications Tubal Sterilization Discharge Date Comments 8 39.4 false Discharge Information Feeding Method Contraceptive Method Maternal HG B and HCT Levels Ob Episode Information Episode Created Date Number of Fetuses Patient Bloodtype Patient rh Status Prepregnancy Weight lbs Domestic Partner Domestic Partner Phone Father Name Mold Filling Operator Status 11/12/19 22 1 CLOSED Fetus Data First Name Last Name Admitted to NICU Weight (g) Sex Living Outcome Pediatric Complications Fetus ID Race Codes Race Delivery Type [id number] Moreno Calculation Initial Moreno Date Initial Exam Date Initial Exam Provider Initial Ultrasound Date Last Menstrual Period Date Ultra Sound Weeks Gestation 0 Eighteen To Twenty Week Moreno Update Ultra Sound Date Fundal Height At Umbil Quickening Date Ultra Sound Latest Weeks Gestation Final Moreno Confirmed By Final Moreno Confirmed Date Final Moreno Date Ultra Sound Latest Days Gestation 0 0 Menstrual History Last Menstrual Date Menses Monthly On Bcp Conception Prior Menses Frequency Hcg Plus Date Menarche Onset Age Delivery Information Delivery Date Delivery Type Labor Anesthesia Weeks Gestation Incision Type Labor Labor Length Hrs Delivered By Post Complications Tubal Sterilization Discharge Date Comments 9 None 39 false Discharge Information Feeding Method Contraceptive Method Maternal HG B and HCT Levels Ob Episode Information Episode Created Date Number of Fetuses Patient Bloodtype Patient rh Status Prepregnancy Weight lbs Domestic Partner Domestic Partner Phone Father Name Mold Filling Operator Status 11/12/19 22 1 CLOSED Fetus Data First Name Last Name Admitted to NICU Weight (g) Sex Living Outcome Pediatric Complications Fetus ID Race Codes Race Delivery Type 3628.73 6 M [id number] Moreno Calculation Initial Moreno Date Initial Exam Date Initial Exam Provider Initial Ultrasound Date Last Menstrual Period Date Ultra Sound Weeks Gestation 0 Eighteen To Twenty Week Moreno Update Ultra Sound Date Fundal Height At Umbil Quickening Date Ultra Sound Latest Weeks Gestation Final Moreno Confirmed By Final Moreno Confirmed Date Final Moreno Date Ultra Sound Latest Days Gestation 0 0 Menstrual History Last Menstrual Date Menses Monthly On Bcp Conception Prior Menses Frequency Hcg Plus Date Menarche Onset Age Delivery Information Delivery Date Delivery Type Labor Anesthesia Weeks Gestation Incision Type Labor Labor Length Hrs Delivered By Post Complications Tubal Sterilization Discharge Date Comments 0 39.1 false Discharge Information Feeding Method Contraceptive Method Maternal HG B and HCT Levels
--- OUTSIDE RECORDS SUMMARY | 2024-11-15 02:56 | XMS_ITS | Clinical Summary ---
Author Organization [facility] Address [address] 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 This disclosure is being madepursuant to the Care Everywhere program and may not contain all information available regarding this patient. Last updated 18.[facility] Social History Tobacco Use Types Packs/Day Years Used Date Smoking Tobacco: Never Assessed Sex and Gender Information Value Date Recorded Sex Assigned at Not on file Gender Identity Not on file Sexual Orientation Not on file Plan of Treatment Health Maintenance Due Date Last Done Comments PAP SMEAR 1993 HIV SCREENING 2008 HEPATITIS C SCREENING 05/24/2011 DTAP/TDAP/TD VACCINES (1 - Tdap) 2012 HEPATITIS B VACCINE (1 of 3 - 19+ 3-dose series) 2012 COVID-19 VACCINE ( - 2023-2 5 season) 2024 INFLUENZA VACCINE (#1) 2024 DEPRESSION SCREENING 08/28/2024 ZOSTER VACCINE (1 of 2) 2043 HIB VACCINE Aged Out No longer eligi ble based on patient's age to complete this topic HPV VACCINE Aged Out No longer eligi ble based on patient's age to complete this topic MENINGOCOCCAL (Group B) VACC INE SHARED DECISION-MAKING Aged Out No longer eligibl e based on patient's age to complete this topic MENINGOCOCCAL GROUPS A/C/Y/W VACCINE Aged Out No longer eligible b ased on patient's age to complete this topic PNEUMOCOCCAL VACCINE Aged Out No long er eligible based on patient's age to complete this topic
--- OUTSIDE RECORDS SUMMARY | 2024-11-15 02:56 | XMS_ITS | Clinical Summary ---
Author Organization [facility] Address [address] [place] [address] Care Team Providers Care Geospatial Program Management Officer Name Role Phone Tomasz Allen MD Primary Care Provider [phone] Allergies No known active allergies Medications traMADoL (ULTRAM) 50 mg tablet Take 1 tablet (50 mg total) by mouth every 6 (six) hours 20 tablet 1 Active Additional Information Patient not taking.Reported on 10/08/2024 traMADoL (ULTRAM) 50 mg tablet Take 1 tablet (50 mg total) by mouth every 6 (six) hours 20 tablet 1 Active Additional Information Patient not taking.Reported on 10/08/2024 clindamycin (CLEOCIN T) 1 % lotion Apply topically 2 (two) times a day 60 mL 1 5 Active metroNIDAZOLE (FLAGYL) 500 mg tablet Take 1 tablet (500 mg total) by mouth 2 (two) times a day for 7 days 14 tablet 5 10/16/19 25 Active Problems Problem Noted Date Diagnosed Date Urinary tract infectious disease 01/14/2022 Right hand pain 07/26/2021 Finger injury, initial encounter 07/26/2021 Acute vaginitis 12/21/2020 Acute cystitis 12/21/2020 wound disruption 09/16/2020 Delivery by elective section 08/10/2020 Increased frequency of urination 06/12/2019 Low grade squamous intraepit helial lesion (LGSIL) on Papanicolaou smear of cervix 03/15/2018 Generalized anxiety disorder 03/15/2018 Syphilis in female 06/16/2016 Encounters Date Type Department Care Team Description 11/15/2024 12:32 AM CDT - 11/15/2024 2:21 AM CDT Emergency [facility] Emergency Department [address] [place] [address] Tree Johnson MD Discharge Disposition: Left Against Medical Advice 10/11/2024 Telephone [facility] [address] [place] [address] Nelly Messina LPN 10/09/2024 Orders Only [facility] [address] [place] [address] Karli Ndiaye DO 10/09/2024 Telephone [facility] [address] [place] [address] Karli Ndiaye DO Vaginitis/Bacterial Vaginosis 10/08/2024 1:50 PM DUST COLLECTOR Lab [facility] [address] [place] [address] Screening for STDs (sexually transmitted diseases) 10/08/2024 1:37 PM DUST COLLECTOR - 10/08/2024 11:59 PM DUST COLLECTOR Hospital Encounter [address] [address] Screening for malignant neoplasm of cervix; Screen for sexually transmitted diseases Discharge Disposition: Discharge to home or self care 10/08/2024 1:00 PM DUST COLLECTOR [facility] [address] [place] [address] Karli Ndiaye DO Encounter for annual routine gynecological examination (Primary Dx); Screen for sexually transmitted diseases; Screening for malignant neoplasm of cervix; Hidradenitis suppurativa 10/08/2024 Orders Only [facility] [address] [place] [address] Karli Ndiaye DO Screening for STDs (sexually transmitted diseases) (Primary Dx) from Last 3 Months Immunizations Immunization Administration Dates Next Due DTP 08/24/1994, 4,1993,07/21 DTaP 05/22/2014,08/22/1997 HPV, Quadrivalent 05/13/2009,03/28/2008,01/11/20 07 Hep A, Pediatric 01/10/2007 Hep B, Adolescent or Pediatric 1994,1993,1993 HiB 08/22/1997, 4,01/10/1994,10/05,1993 IPV 04/15/1998 Influenza, Quadrivalent, Spl it, Preservative Free, Intramuscular 08/06/2020,05/22/2014 MMR 08/22/1997,08/24/1994 Meningococcal C Conjugate 01/10/2007 OPV 08/22/1997, 4,01/10/1994,10/05,1993 Tdap 05/22/2014,01/10/2007 Social History Tobacco Use Types Packs/Day Years Used Date Smoking Tobacco: Every Day Vaping Smokeless Tobacco: Current Tobacco Cessation:Ready to Q uit: Not Asked; Counseling Given: Not Answered Alcohol Use Standard Drinks/Week Comments Yes 0 (1 standard drink = 0.6 oz pur e alcohol) 2x per month, socially Personal Safety Answer Date Recorded Have you ever been in or are you currently in a harmful physical or emotional relationship or is someone making you feel afraid or unsafe? Denies 11/15/2024 Comments No Sex and Gender Information Value Date Recorded Sex Assigned at Not on file Legal Sex Female 1:54 AM DUST COLLECTOR Gender Identity Not on file Sexual Orientation Not on file Occupation Industry Job Start Date Job End Date Not on file Not on file Not on file Not on file Obstetrics History Para Term AB IAB SAB Ectopic Multiple Livin g Live Births 6 3 3 3 3 Date Outcome GA Total Labor Labor/2nd/3rd Weight Sex Type Anes PTL Edelmira A1 A5 Name Clin SAB SAB SAB 2013 Term C-Secti on 2017 Term C-Secti on 2020 Term C-Secti on Last Filed Vital Signs Vital Sign Reading Time Taken Comments Blood Pressure 122/76 11/15/2024 12:29 AM CDT Pulse 95 11/15/2024 12:29 AM CDT Temperature 35.7 C (96.3 F) 11/15/2024 12:29 AM CDT Respiratory Rate 18 11/15/2024 12:29 AM CDT Oxygen Saturation 95% 11/15/2024 12:29 AM CDT Inhaled Oxygen Concentration - - Weight 87.1 kg (192 lb) 11/15/2024 12:29 AM CDT Height 149.9 cm (4' 11 ) 11/15/2024 12:29 AM CDT Body Mass Index 38.78 11/15/2024 12:29 AM CDT Plan of Treatment Health Maintenance Due Date Last Done Comments Depression Screening 1993 Varicella Vaccines (1 of 2 - 13+ 2-dose series) 2006 Pneumococcal vaccine <65 (1 of 2 - PCV) 2012 Influenza Vaccine (#1) 2024 08/06/2020, 2013 DTaP/Tdap/Td Vaccine (9 - Td or Tdap) 05/22/2024 05/22/2014, 05/22/2014, 01/10/2007, Additional history exists Cervical Cancer Screening 10/08/2025 10/08/2024, 06/2025 Regular Well Visit/Exam 18-64 10/08/2025 10/08/2024 Hepatitis B Screening Completed 1994 , 01/10/1994, 1993 HPV Vaccines Completed 05/13/2009, 08/0 08/2007, 01/10/2007 Hepatitis C Screening Completed 10/08/2024 Procedures Procedure Name Priority Date/Time Associated Diagnosis Comments HIV 1/2 ANTIBODY PLUS P24 ANTIGEN Routine 10/08/2024 3:13 PM DUST COLLECTOR Screening for STDs (sexually transmitted diseases) HEPATITIS C ANTIBODY Routine 10/08/2024 1:45 PM DUST COLLECTOR Screening for STDs (sexually transmitted diseases) RPR Routine 10/08/2024 1:45 PM DUST COLLECTOR Screening for STDs (sexually transmitted diseases) HEPATITIS B SURFACE ANTIGEN Routine 10/08/2024 1:45 PM DUST COLLECTOR Screening for STDs (sexually transmitted diseases) PAP AND HIGH RISK HPV, REFLEX TO GENOTYPING Routine 10/08/2024 10:03 AM DUST COLLECTOR Screening for malignant neoplasm of cervix HIGH RISK HPV DNA DETECTION WITH GENOTYPING Routine 10/08/2024 9:00 AM DUST COLLECTOR Screening for malignant neoplasm of cervix TRICHOMONAS VAGINALIS PCR Routine 10/08/2024 9:00 AM DUST COLLECTOR Screen for sexually transmitted diseases N. GONORRHOEAE/C. TRACHOMATIS AMPLIFICATION Routine 10/08/2024 9:00 AM DUST COLLECTOR Screen for sexually transmitted diseases from Last 3 Months Results * HIV 1/2 Antibody plus p24 Antigen Blood (10/08/2024 3:13 PM DUST COLLECTOR) HIV 1/2 ab + p24 ag Nonreactive Nonreactive Comment: Nonreactive for HIV-1 antigen and HIV-1/HIV-2 antibodies. No laboratory evidence of HIV infection. If acute HIV infection is suspected, consider testing for HIV-1 RNA. Testing performed by: [facility], [address] [place] [address]., [id number] Blood 10/08/2024 3:13 PM DUST COLLECTOR 10/08/2024 6:51 PM DUST COLLECTOR Karli Ndiaye DO LAB MICROBIOLOGY - GENE RAL ORDERABLES Final Result VIN [address] [facility] Department [place] [address] * Hepatitis C antibody Blood (10/08/2024 1:45 PM DUST COLLECTOR) Hep C Ab Nonreactive Nonreactive Comment: Interpretive Data Nonreactive: Antibodies to HCV not detected. Does NOT exclude the possibility of recent exposure to HCV. Equivocal: Equivocal for HCV antibodies. Supplemental molecular testing will be automatically performed to determine infection status in accordance with current CDC screening recommendations. Reactive: Positive for HCV antibodies. This may represent current or past HCV infection. Supplemental molecular testing will be automatically performed to determine current infection status in accordance with current CDC screening recommendations. Interpretive data was last revised on 2019. Testing performed by: [facility], [address] [place] [address]., [id number] Blood 10/08/2024 1:45 PM DUST COLLECTOR 10/08/2024 9:00 PM DUST COLLECTOR Karli Ndiaye DO LAB MICROBIOLOGY - GENE RAL ORDERABLES Final Result Performing Organization Address City/[facility]/ZIP Co de Phone Number VIN LOMBARDI [address] [address] Department [place] [address] * RPR Blood (10/08/2024 1:45 PM DUST COLLECTOR) RPR Nonreactive Nonreactive Comment:Testing performed by : [facility], [address] [place] [address]., [id number] Blood 10/08/2024 1:45 PM DUST COLLECTOR 10/08/2024 9:00 PM DUST COLLECTOR Karli Ndiaye DO LAB MICROBIOLOGY - GENE RAL ORDERABLES Final Result Performing Organization Address [facility] Co de Phone Number VIN [address] [address] [facility] [place] [address] * Hepatitis B Surface Antigen Blood (10/08/2024 1:45 PM DUST COLLECTOR) HepBsAg Nonreactive Nonreactive Comment:Testing performed by : [facility], [address] [place] [address]., [id number] Blood 10/08/2024 1:45 PM DUST COLLECTOR 10/08/2024 9:00 PM DUST COLLECTOR Karli Ndiaye DO LAB MICROBIOLOGY - GENE RAL ORDERABLES Final Result Performing Organization Address City/[facility] Co de Phone Number VIN LOMBARDI [address] [facility] [place] [address] * Pap and High Risk HPV and Genotyping (Cytology Component) (10/08/2024 10:03 AM DUST COLLECTOR) Thin prep (Pap test) 10/08/2024 10:03 AM DUST COLLECTOR 10/08/2024 10:03 AM DUST COLLECTOR Narrative PATHOLOGY CH - 10/10/2024 3:39 PM DUST COLLECTOR [facility] Department of Pathology [address] [place] [address] Final Report with Addendum Note to Patients: This report may contain a detailed description of human tissue sent by a health care provider to the laboratory for pathologic evaluation. The content of this report is essential for diagnosis and may provide important critical findings. This information may be unfamiliar to patients to review without a medical professional present. It is advised that the patient review this report in the presence of a health care provider who can answer questions and explain the details. Patient Name: ERICA LAMAR Address: [address] [place] [address] Gender: F : 1995 (Age: 29) Service: Location: Hospital #: [id number] Patient Type: SPECIMEN Taken: 10/08/2024 Received: 10/08/2024 Accessioned:: 10/09/2024 Reported: 10/10/2024 Physician(s): Chandni Babb D.O. Diagnosis: SOURCE OF SPECIMEN SCREENING THIN PREP IMAGED PAP w/ HPV: STATEMENT OF ADEQUACY - Specimen satisfactory for interpretation; endocervical/transformation zone component absent or insufficient GENERAL CATEGORIZATION: - Negative for intraepithelial lesion or malignancy MICHEAL Landry(ASCP) Report Electronically Reviewed and Signed Out By MICHEAL Landry(ASCP) 10/10/2024 15:39:03Addenda: HPV Test Interpretation (Normal-Negative for High Risk HPV) HPV HR 16- Not detected HPV HR 18-Not detected HPV HR non 16/18- Not detected Interpretive Data Nucleic acid amplification for detection of high-risk Human Papilloma virus (HPV) is performed by the Ovi Yulia 6800 HPV test. This assay specifically detects HPV- 16 and HPV-18 genotypes. The following HPV genotypes are detected as high-risk HPV: HPV-31, 33, 35, 39, 45, 51, 52, 56, 58, 59, 66, and 68. This assay has been approved by the [place] Food and Drug Administration for detection of HPV in cervical specimens collected by a physician using an endocervical brush/spatula or cervical broom and placed in the ThinPrep Pap Test PreservCyt collection containers. The performance characteristics of this test have been verified by the [facility] Molecular Infectious Disease laboratory. Correlate with reported cytology results, as applicable. Interpretive data last revised 23 MICHEAL Landry(ASCP)Report Electronically Reviewed and Signed Out By MICHEAL Landry(ASCP) 10/10/2024 10:55:25 Specimen(s) Received: A: SCREENING THIN PREP IMAGED PAP w/ HPV Clinical History: Last Menstrual Period: 09/22/24 The Pap test is a screening test used to aid in the detection of cervical cancer and its precursors. It should not be the sole means by which malignant and premalignant lesions are diagnosed. Both false negative and false positive results may occur. It also has poor sensitivity for the detection of endometrial lesions and should not be used to evaluate suspected endometrial abnormalities. For these reasons it is most important to obtain Pap tests at regular intervals. The performance characteristics of some immunohistochemical stains, fluorescence in-situ hybridization tests and immunophenotyping by flow cytometry cited in this report (if any) were determined by the Surgical Pathology Department at [facility] as part of an ongoing senior quality technician program and in compliance with federally mandated regulations drawn from the Clinical Laboratory Improvement Act of 1988 (CLIA '88). Some of these tests rely on the use of analyte specific reagents and are subject to specific labeling requirements by the [place] Food and Drug Administration. Such diagnostic tests may only be performed in a facility that is certified by the Department of Health and Human Services as a high complexity laboratory under CLIA '88. The FDA has determined that such clearance or approval is not necessary. This test is used for clinical purposes. It should not be regarded as investigational or for research. Nevertheless, federal rules concerning the medical use of analyte specific reagents require that the following disclaimer be attached to the report: This test was developed and its performance characteristics determined by the Surgical Pathology Department [facility]. It has not been cleared or approved by the [place]. S. Food and Drug Administration. Karli Ndiaye DO LAB CYTOLOGY ORDERABLES Final Result PATHOLOGY [address] [place] [address] * High Risk HPV DNA Detection with Genotyping (Molecular component) (10/08/2024 9:00 AM DUST COLLECTOR) HPV HR 16 Not Detected Not Detected [facility] Comment:Testing performed by : [facility], [address] [place]., [address] HPV HR 18 Not Detected Not Detected VIN Comment:Testing performed by : [facility], [address] [place]., [address] HPV HR Non 16/18 Not Detected Not Detected VIN Comment: Interpretive Data Nucleic acid amplification for detection of high-risk Human Papilloma virus (HPV) is performed by the Ovi Yulia 6800 HPV test. This assay specifically detects HPV-16 and HPV-18 genotypes. The following HPV genotypes are detected as high-risk HPV: HPV-31, 33, 35, ,39, 45, 51, 52, 56, 58, 59, 66, and 68. This assay has been approved by the [place] Food and Drug Administration for detection of HPV in cervical specimens collected by a physician using an endocervical brush/spatula or cervical broom and placed in the ThinPrep Pap Test PreservCyt collection containers. The performance characteristics of this test have been verified by the [facility] Molecular Infectious Disease laboratory. Correlate with separately reported cytology results, as applicable. Interpretive data last revised 23 Testing performed by: [facility], [address] [place]., [address] Endocervical 10/08/2024 9:00 AM DUST COLLECTOR 10/09/2024 3:06 PM DUST COLLECTOR Narrative VIN - 10/10/2024 4:04 AM DUST COLLECTOR Clinical history and diagnosis->Liquid-based PAP test with high risk HPV test- Z12.4 Number of vials->1 Testing type->Screening Last menstrual period (date if known)->09/22/24 Karli Ndiaye DO LAB BODY FLUIDS AND STO OLS ORDERABLES Final Result VIN LOM[place]ARDI [address] [address] [facility] [place], [place] [id number] [facility] * N. gonorrhoeae/C. trachomatis Amplification Thin prep-Endocervical (10/08/2024 9:00 AM DUST COLLECTOR) C. trachomatis Not Detected [facility] Comment:Testing performed by : [facility], [address] [place] [address]., [address] N. gonorrhoeae Not Detected [place] L[place] Comment: Interpretive Data This assay detects Chlamydia trachomatis and Neisseria gonorrhoeae by nucleic acid amplification testing (NAAT). This assay has been cleared by the [place] Food and Drug administration. The performance characteristics of this test have been verified by the [facility] Infectious Disease laboratory. The performance characteristics of this test have not been evaluated in individuals less than 14 years of age. Current Interpretive Data was last revised on 2023. Testing performed by: [facility], [address] [place] [address]., [id number] Thin prep-Endocervica l 10/08/2024 9:00 AM DUST COLLECTOR 10/09/2024 3:06 PM DUST COLLECTOR Karli Ndiaye DO LAB MICROBIOLOGY - GENE RAL ORDERABLES Final Result Performing Organization Address City/[facility]/ZIP Co de Phone Number VIN LOM[place] [address] [address] [place] [address] [facility] * Trichomonas vaginalis PCR Thin prep-Endocervical (10/08/2024 9:00 AM DUST COLLECTOR) Trichomonas DNA Not Detected [facility] Comment: Interpretive Data This assay detects Trichomonas vaginalis by nucleic acid amplification testing (NAAT). This assay has been cleared by the [place] Food and Drug administration. The performance characteristics of this test have been verified by the [facility]ious Disease laboratory. The performance of this test has not been evaluated in individuals less than 18 years of age. Current Interpretive Data was last revised on 2023. Testing performed by: [facility], [address] [place]., [address] Thin prep-Endocervica l 10/08/2024 9:00 AM DUST COLLECTOR 10/09/2024 3:06 PM DUST COLLECTOR Karli Ndiaye DO LAB MICROBIOLOGY - GENE RAL ORDERABLES Final Result VIN L[place] [address] [place] [address] [facility] from Last [address] [place] [address] [place] [address] [facility] [place] [address] Care Teams Geospatial Program Management Officer Relationship Specialty Start Date End Date Tomasz Allen MD [address] [place] [id number] PCP - General 01/07/20
--- OUTSIDE RECORDS SUMMARY | 2024-11-15 02:56 | XMS_ITS | Referral Summary ---
Author Organization [facility] Address [address] [place] [address] Care Team Providers Care Real Estate Leasing Manager Name Role Phone Tomasz Allen MD Primary Care Provider [phone] Encounters Date Type Department Care Team Description 11/15/2024 12:32 AM CDT - 11/15/2024 2:21 AM CDT Emergency [facility] Emergency Department [address] [place] [address] Tree Johnson MD Discharge Disposition: Left Against Medical Advice 10/11/2024 Telephone [facility] [place] [facility] [address] [facility] [address] [place] [address] Nelly Messina LPN 10/09/2024 Orders Only [facility] [address] [place] [address] Karli Ndiaye DO 10/09/2024 Telephone [facility] Medical [facility] [address] [place] [address] Karli Ndiaye, Vaginitis/Bacterial Vaginosis 10/08/2024 1:37 PM GASATERIA ATTENDANT - 10/08/2024 11:59 PM GASATERIA ATTENDANT Hospital Encounter [address] [address] Screening for malignant neoplasm of cervix; Screen for sexually transmitted diseases Discharge Disposition: Discharge to home or self care 10/08/2024 1:50 PM GASATERIA ATTENDANT Lab [facility] [address] [place] [address] Screening for STDs (sexually transmitted diseases) 10/08/2024 Orders Only [facility] [address] [place] [address] Karli Ndiaye, Screening for STDs (sexually transmitted diseases) (Primary Dx) 10/08/2024 1:00 PM GASATERIA ATTENDANT Office Visit [facility] [address] [place] [address] Karli Ndiaye DO Encounter for annual routine gynecological examination (Primary Dx); Screen for sexually transmitted diseases; Screening for malignant neoplasm of cervix; Hidradenitis suppurativa from Last 3 Months Allergies No known active allergies Medications traMADoL [...] anxiety disorder 03/15/2018 Syphilis in female 06/16/2016 Immunizations Immunization Administration Dates Next Due DTP [...] on file Legal Sex Female 1:54 AM GASATERIA ATTENDANT Gender Identity Not on file Sexual Orientation Not on file Occupation Industry Job Start Date Job End Date Not on file Not on file Not on file Not on file Last Filed Vital Signs Vital Sign Reading [...] 11/15/2024 12:29 AM CDT Plan of Treatment Not on file Procedures Procedure Name Priority Date/Time Associated Diagnosis Comments HIV 1/2 ANTIBODY PLUS P24 ANTIGEN Routine 10/08/2024 3:13 PM GASATERIA ATTENDANT Screening for STDs (sexually transmitted diseases) HEPATITIS C ANTIBODY Routine 10/08/2024 1:45 PM GASATERIA ATTENDANT Screening for STDs (sexually transmitted diseases) RPR Routine 10/08/2024 1:45 PM GASATERIA ATTENDANT Screening for STDs (sexually transmitted diseases) HEPATITIS B SURFACE ANTIGEN Routine 10/08/2024 1:45 PM GASATERIA ATTENDANT Screening for STDs (sexually transmitted diseases) PAP AND HIGH RISK HPV, REFLEX TO GENOTYPING Routine 10/08/2024 10:03 AM GASATERIA ATTENDANT Screening for malignant neoplasm of cervix HIGH RISK HPV DNA DETECTION WITH GENOTYPING Routine 10/08/2024 9:00 AM GASATERIA ATTENDANT Screening for malignant neoplasm of cervix TRICHOMONAS VAGINALIS PCR Routine 10/08/2024 9:00 AM GASATERIA ATTENDANT Screen for sexually transmitted diseases N. GONORRHOEAE/C. TRACHOMATIS AMPLIFICATION Routine 10/08/2024 9:00 AM GASATERIA ATTENDANT Screen for sexually transmitted diseases from Last 3 Months Results * HIV 1/2 Antibody plus p24 Antigen Blood (10/08/2024 3:13 PM GASATERIA ATTENDANT) HIV 1/2 ab + p24 ag Nonreactive Nonreactive Comment: Nonreactive for HIV-1 antigen and HIV-1/HIV-2 antibodies. No laboratory evidence of HIV infection. If acute HIV infection is suspected, consider testing for HIV-1 RNA. Testing performed by: [facility], [address] [place] [address], [place]., [address] Blood 10/08/2024 3:13 PM GASATERIA ATTENDANT 10/08/2024 6:51 PM GASATERIA ATTENDANT Karli Ndiaye DO LAB MICROBIOLOGY - GENE RAL ORDERABLES Final Result Performing Organization Address [facility] Co de Phone Number VIN LOMBARDI [address] [facility] [place] [place] [address] * Hepatitis C antibody Blood (10/08/2024 1:45 PM GASATERIA ATTENDANT) Hep C Ab Nonreactive Nonreactive Comment: Interpretive [...] revised on 2019. Testing performed by: [facility], [address] [place] [address]., [address] Blood 10/08/2024 1:45 PM GASATERIA ATTENDANT 10/08/2024 9:00 PM GASATERIA ATTENDANT Karli Ndiaye DO LAB MICROBIOLOGY - GENE RAL ORDERABLES Final Result Performing Organization Address [facility] de Phone Number VIN [address] [facility] [place] [place] [address] * RPR Blood (10/08/2024 1:45 PM GASATERIA ATTENDANT) RPR Nonreactive Nonreactive Comment:Testing performed by : [facility], [address] [place] [address]., [address] Blood 10/08/2024 1:45 PM GASATERIA ATTENDANT 10/08/2024 9:00 PM GASATERIA ATTENDANT Karli Ndiaye DO LAB MICROBIOLOGY - GENE RAL ORDERABLES Final Result Performing Organization Address [facility] Co de Phone Number VIN [address] [place] [address] * Hepatitis B Surface Antigen Blood (10/08/2024 1:45 PM GASATERIA ATTENDANT) HepBsAg Nonreactive Nonreactive Comment:Testing performed by : [facility], [address] [place] [address]., [address] Blood 10/08/2024 1:45 PM GASATERIA ATTENDANT 10/08/2024 9:00 PM GASATERIA ATTENDANT us Karli Ndiaye DO LAB MICROBIOLOGY - GENE RAL ORDERABLES Final Result VIN [address] [place] [address] * Pap and High Risk HPV and Genotyping (Cytology Component) (10/08/2024 10:03 AM GASATERIA ATTENDANT) Thin prep (Pap test) 10/08/2024 10:03 AM GASATERIA ATTENDANT 10/08/2024 10:03 AM GASATERIA ATTENDANT Narrative PATHOLOGY - 10/10/2024 3:39 PM GASATERIA ATTENDANT [facility] Department of Pathology [address] [place] [address] Final Report with Addendum Note to Patients: [...] the details. Patient Name: ERICA LAMAR Address: [address] [place] [address] Gender: F : 1995 (Age: 29) Service: Location: N : [id number] [facility] #: [id number] Patient Type: SPECIMEN Taken: 10/08/2024 Received: 10/08/2024 [...] this test have been verified by the [facility] Molecular Infectious Disease laboratory. Correlate with reported [...] by the Surgical Pathology Department at [facility] as part of an ongoing quality control tester program and in compliance with federally mandated [...] characteristics determined by the Surgical Pathology Department [facility]. It has not been cleared or approved by the [place]. S. Food and Drug Administration. Karil Ndiaye DO LAB CYTOLOGY ORDERABLES Final Result Performing Organization Address City/State/[facility] Co de Phone Number PATHOLOGY [address] [place] [address] * High Risk HPV DNA Detection with Genotyping (Molecular component) (10/08/2024 9:00 AM GASATERIA ATTENDANT) HPV HR 16 Not Detected Not Detected [facility] Comment:Testing performed by : [facility], [address] [place]., [address] HPV HR 18 Not Detected Not Detected VIN Comment:Testing performed by : [facility], [address] [place]., [address] HPV HR Non 16/18 Not Detected Not [...] this test have been verified by the [facility] Molecular Infectious Disease laboratory. Correlate with separately reported cytology results, as applicable. Interpretive data last revised 23 Testing performed by: [facility], [address] [place]., [address] Endocervical 10/08/2024 9:00 AM GASATERIA ATTENDANT 10/09/2024 3:06 PM GASATERIA ATTENDANT Narrative [facility] - 10/10/2024 4:04 AM GASATERIA ATTENDANT Clinical history and diagnosis->Liquid-based PAP test with high risk HPV test- Z12.4 Number of vials->1 Testing type->Screening Last menstrual period (date if known)->09/22/24 Karli Ndiaye DO LAB BODY FLUIDS AND STO OLS ORDERABLES Final Result VIN [address] [place] [address] [facility] * N. gonorrhoeae/C. trachomatis Amplification Thin prep-Endocervical (10/08/2024 9:00 AM GASATERIA ATTENDANT) C. trachomatis Not Detected [facility] Comment:Testing performed by : [facility], [address] [place] [address], [place]., [address] N. gonorrhoeae Not Detected VIN Comment: Interpretive Data This assay detects Chlamydia trachomatis and Neisseria gonorrhoeae by nucleic acid amplification testing (NAAT). This assay has been cleared by the [place] Food and Drug administration. The performance characteristics of this test have been verified by the [facility] Molecular Infectious Disease laboratory. The performance characteristics of this test have not been evaluated in individuals less than 14 years of age. Current Interpretive Data was last revised on 2023. Testing performed by: [facility], [address] [place] [address], [place] [address] Thin prep-Endocervica l 10/08/2024 9:00 AM GASATERIA ATTENDANT 10/09/2024 3:06 PM GASATERIA ATTENDANT Karli Ndiaye DO LAB MICROBIOLOGY - GENE RAL ORDERABLES Final Result Performing Organization Address [facility]/State/ZIP Co de Phone Number VIN LOMBARDI [address] [place] [address] [facility] * Trichomonas vaginalis PCR Thin prep-Endocervical (10/08/2024 9:00 AM GASATERIA ATTENDANT) Trichomonas DNA Not Detected [facility] Comment: Interpretive Data This assay detects Trichomonas vaginalis by nucleic acid amplification testing (NAAT). This assay has been cleared by the [place] Food and Drug administration. The performance characteristics of this test have been verified by the [facility] Molecular Infectious Disease laboratory. The performance of this test has not been evaluated in individuals less than 18 years of age. Current Interpretive Data was last revised on 2023. Testing performed by: [facility], [address] [place]., [address] Thin prep-Endocervica l 10/08/2024 9:00 AM GASATERIA ATTENDANT 10/09/2024 3:06 PM GASATERIA ATTENDANT Karli Ndiaye DO LAB MICROBIOLOGY - GENE RAL ORDERABLES Final Result Performing Organization Address [facility] Co de Phone Number VIN LOMBARDI [address] [place] [address] [facility] from Last 3 Months Insurance [facility] [id number] [place] [address] Care Teams Real Estate Leasing Manager Relationship Specialty Start Date End Date Allen, Tomasz, MD [address] [place] [address] PCP - General 01/07/20
--- OUTSIDE RECORDS SUMMARY | 2024-11-15 02:56 | XMS_ITS | Encounter Summary ---
Author Organization [facility] Address [address] [place] [address] Care Team Providers Care Horticultural Specialty Grower Name Role Phone Tomasz Allen MD Primary Care Provider [phone] Reason for Visit * Reason Comments Foreign Body Pt has a tampon lodg ed in her vagina and can not get it out Encounter Details Date Type Department Care Team (Late st Contact Info) Description 11/15/2024 12:32 AM CDT - 11/15/2024 2:21 AM CDT Emergency [facility] Emergency Department [address] [place] [address] Tree Johnson MD [address] [place] [address] Discharge Disposition: Left Against Medical Advice Social History Tobacco Use Types Packs/Day Years Used Date Smoking Tobacco: Every Day Vaping Smokeless Tobacco: Current Alcohol Use Standard Drinks/Week Comments Yes 0 [...] on file Legal Sex Female 1:54 AM MANAGER INVESTIGATIONS Gender Identity Not on file Sexual Orientation Not on file Occupation Industry Job Start Date Job End Date Not on file Not on file Not on file Not on file documented as of this encounter Last Filed Vital Signs Vital Sign Reading [...] Mass Index 38.78 11/15/2024 12:29 AM CDT documented in this encounter Medications at Time of Discharge clindamycin (CLEOCIN T) 1 % lotion Apply topically 2 (two) times a day 60 mL 1 10/08/2024 traMADoL (ULTRAM) 50 mg tablet Take 1 tablet (50 mg total) by mouth every 6 (six) hours 20 tablet 03/08/2021 traMADoL (ULTRAM) 50 mg tablet Take 1 tablet (50 mg total) by mouth every 6 (six) hours 20 tablet 07/17/2021 documented as of this encounter Discharge Disposition Disposition Code Departure Means Destination Comment s Left Against Medical Advice documented in this encounter Plan of Treatment Not on file documented as of this encounter Visit Diagnoses Not on filedocumented in this encounter Care Teams Horticultural Specialty Grower Relationship Specialty Start Date End Date Tomasz Allen MD [address] [place] [address] PCP - General 01/07/20 documented as of this encounter
--- OUTSIDE RECORDS SUMMARY | 2024-11-15 02:56 | XMS_ITS | Clinical Summary ---
Author Organization [facility] Address [address] [place] [address] Care Team Providers Care Master Black Belt Name Role Phone Surekha Martinez MD Primary Care Provider [phone] Allergies No known active allergies Medications penicillin VK 500 MG tablet 11/07/2019 Active predniSONE 20 MG tablet 11/07/2019 Active Family History Medical History Relation Comments No Known Problems Father Diabetes Mother None Neg Hx Relation Status Comments Father Alive Mother Social History Tobacco Use Types Packs/Day Years Used Date Smoking Tobacco: Every Day Cigarettes 0.3 5 Smokeless Tobacco: Never Alcohol Use Standard Drinks/Week Comments Yes 0 (1 standard drink = 0.6 oz pur e alcohol) SOCIALLY Comments No Sex and Gender Information Value Date Recorded Sex Assigned at Not on file Legal Sex Female 7:24 PM CDT Gender Identity Not on file Sexual Orientation Not on file Last Filed Vital Signs Vital Sign Reading Time Taken Comments Blood Pressure 128/83 11/07/2019 6:33 PM CDT Pulse 111 11/07/2019 6:33 PM CDT Temperature 37.1 C (98.8 F) 11/07/2019 6:33 PM CDT Respiratory Rate 18 11/07/2019 6:33 PM CDT Oxygen Saturation 98% 11/07/2019 6:33 PM CDT Inhaled Oxygen Concentration - - Weight 81.6 kg (180 lb) 10/23/2019 4:09 PM GARNISHMENT SPECIALIST Height 149.9 cm (4' 11 ) 10/23/2019 4:09 PM GARNISHMENT SPECIALIST Body Mass Index 36.36 10/23/2019 4:09 PM GARNISHMENT SPECIALIST Plan of Treatment Health Maintenance Due Date Last Done Comments Cervical Cancer Screening Pap Smear (Age 30 to 64) Every 3 Years 1993 Annual Physical 1996 Pneumococcal Vaccine: Pediatrics (0 to 5 Years) and At-Risk Patients (6 to 64 Years) (1 of 2 - PCV) 1999 Hepatitis C 2011 Cervical Cancer Screening Pap with HPV Testing (Age 30 to 64) Every 5 Years 2023 Cervical Cancer Screening with HPV 2023 COVID-19 Vaccine ( - season) 2024 DTaP, Tdap and Td Vaccines (9 - Td or Tdap) 05/22/2024 05/22/2014, 05/22/2014, 01/10/2007, Additional history exists Influenza Adult (#1) 2024 08/06/2020, 05/22/20 14 Hepatitis B Vaccines Completed 1994, 01/10/1994, 1993 Meningococcal Vaccine Aged Out 01/10/2007 No gardenia klarissa eligible based on patient's age to complete this topic HPV Vaccines Completed 05/13/2009, 08/2007, 01/10/2007 Meningococcal B Vaccine Aged Out No l onger eligible based on patient's age to complete this topic RSV Immunizations Under 20 Months Aged Out No longer eligible based on patient's age to complete this topic Insurance [address] Care Teams Master Black Belt Relationship Specialty Start Date End Date Surekha Martinez MD PCP - General 01/25/17
--- OUTSIDE RECORDS SUMMARY | 2024-11-15 02:56 | XMS_ITS | Clinical Summary ---
Author Organization [facility] Address [address] [place] [phone] Phone Care Team Providers Care Track Grinder Operator Name Role Phone Tomasz Allen MD Primary Care Provider Unavailabl e Allergies No known active allergies Medications Multiple Vitamin (MULTI-VITAMIN PO) Take by mouth daily. Active Probiotic Product (PROBIOTIC-10 PO) Take by mouth daily. Active hydrOXYzine (ATARAX) 50 MG Tablet TAKE 1 TABLET BY MOUTH THREE TIMES DAILY NEEDED 08/01/2023 Active Active Problems No known active problems Immunizations Immunization Administration Dates Next Due DTAP VACCINE 08/22/1997 DTP Vaccine 08/24/1994, 4,1993,07/21 Hepatitis A Vaccine, Pediatric/adolescent, 2 Dose Schedule 01/10/2007 Hepatitis B Vaccine, Pediatric/adolescent 1994,01/10/1994,1993 Hib Vaccine,unspecified Formulation 07/29,08/24/1994,01/10/1994,10/05,1993 Human Papillomavirus Vaccine (HPV), quadrivalent 05/13/2009,03/28/2008,01/10/2007 Inactivated Polio Vaccine 04/15/1998 Influenza Vaccine, Quadrivalent, PF 08/06/2020,0 05/22/2014 MMR Vaccine 08/22/1997,08/24/1994 Meningococcal C Conjugate Vaccine 01/10/2007 OPV 08/22/1997, 4,01/10/1994,10/05,1993 TDAP Vaccine 05/22/2014,01/10/2007 Social History Tobacco Use Types Packs/Day Years Used Date Smoking Tobacco: Every Day Cigarettes Smokeless Tobacco: Never Tobacco Cessation:Ready to Q uit: Not Asked; Counseling Given: Not Answered Comments:Less than half a pack daily Alcohol Use Standard Drinks/Week Comments Yes 0 (1 standard drink = 0.6 oz pur e alcohol) Socially Sexually Active Control Partners Comments Yes Male Comments No Sex and Gender Information Value Date Recorded Sex Assigned at Not on file Legal Sex Female 12:40 PM CDT Gender Identity Not on file Sexual Orientation Not on file Last Filed Vital Signs Vital Sign Reading Time Taken Comments Blood Pressure 116/74 11/28/2023 8:22 AM CDT Pulse 110 11/28/2023 8:22 AM CDT Temperature 36.9 C (98.4 F) 11/28/2023 8:22 AM CDT Respiratory Rate 15 11/28/2023 8:22 AM CDT Oxygen Saturation 97% 11/28/2023 8:22 AM CDT Inhaled Oxygen Concentration - - Weight 74.8 kg (165 lb) 08/08/2023 3:13 PM FACILITIES MAINTENANCE ASSISTANT Height - - Body Mass Index - - Plan of Treatment Health Maintenance Due Date Last Done Comments Hepatitis C Virus (HCV) Screening 1993 Pneumococcal Immunization Combined (1 of 2 - PCV) 2012 Pap Smear 2014 Cervical Cancer Screening (CCS) 2023 HPV/Cotest 2023 Influenza Immunization (#1) 2024 08/06/2020, 0 05/22/2014 SARS-COV-2 Immunization ( - season) 2024 DTaP/Tdap/Td Immunization (8 - Td or Tdap) 05/22/2024 05/22/2014, 01/10/2007, 08/22/1997, Additional history exists Respiratory Syncytial Virus (RSV) Immunization (Adult) (1 - 1-dose 75+ series) 2068 Hepatitis B Immunization Completed 994, 01/10/1994, 1993 Meningococcal Immunization (ACWY) Aged Out No longer eligible based on patient's age to complete this topic Rotavirus Immunization Aged Out No lo nger eligible based on patient's age to complete this topic Insurance MEDICAID [employer] Care Teams Track Grinder Operator Relationship Specialty Start Date End Date Tomasz Allen MD PCP - General Er Medical Technician 06/18/23
--- NOTE | 2024-11-15 05:19 | ED.GENADULT ---
HPI - General Adult General Chief complaint: Skin/Abscess/Foreign Body Stated complaint: tampon stuck in vagina Time Seen by Provider: 11/15/24 05:19 History of Present Illness HPI narrative: Patient 29-year-old female who presents emergency department with chief complaint of possible retained tampon. Patient reports that she is currently on her period and reports that she tried to take her tampon out in the string kit became detached from the tampon he was Related Data Allergies Allergy/AdvReac Type Severity Reaction Status Date / Time No Known Allergies Allergy Verified 11/15/24 02:54 Review of Systems Review of Systems: A 10 system review of systems was completed on the patient and is negative except for what is stated in the HPI. Nursing and ancillary documentation was reviewed. Exam Narrative: GENERAL: Well-appearing, well-nourished, and in no acute distress. HEAD: Normocephalic, atraumatic. EYES: PERRLA and EOMI. ENT: Nares clear, no rhinorrhea or epistaxis. Mucous membranes moist. NECK: Supple. CHEST: Clear to auscultation. No respiratory distress. HEART: Regular rate and rhythm. No murmur heard. Normal peripheral pulses. ABDOMEN: Soft, nontender, nondistended, normal active bowel sounds. : Speculum exam showed no foreign body bimanual exam was negative EXTREMITIES: Normal range of motion. No edema. SKIN: Warm, dry, no rash. NEURO: No focal deficits. Alert and oriented x3. PSYCH: Normal mood and affect. Course Vital Signs Vital signs: Vital Signs Temperature 36.1 C L 11/15/24 02:54 Pulse Rate 94 11/15/24 02:54 Respiratory Rate 16 11/15/24 02:54 Blood Pressure 118/84 11/15/24 02:54 Pulse Oximetry 98 11/15/24 02:54 Oxygen Delivery Room Air 11/15/24 02:54 Temperature 36.1 C L 11/15/24 02:54 Pulse Rate 94 11/15/24 02:54 Respiratory Rate 16 11/15/24 02:54 Blood Pressure 118/84 11/15/24 02:54 Pulse Oximetry 98 11/15/24 02:54 Oxygen Delivery Room Air 11/15/24 02:54 Medical Decision Making [facility] Narrative Medical decision making narrative: Differential diagnosis vaginal foreign body, The patient's vaginal area was examined under speculum and bimanual exam there was no evidence of retained foreign body Vital Signs Vital Signs: Vital Signs Temperature 36.1 C L 11/15/24 02:54 Pulse Rate 94 11/15/24 02:54 Respiratory Rate 16 11/15/24 02:54 Blood Pressure 118/84 11/15/24 02:54 Pulse Oximetry 98 11/15/24 02:54 Oxygen Delivery Room Air 11/15/24 02:54 Temperature 36.1 C L 11/15/24 02:54 Pulse Rate 94 11/15/24 02:54 Respiratory Rate 16 11/15/24 02:54 Blood Pressure 118/84 11/15/24 02:54 Pulse Oximetry 98 11/15/24 02:54 Oxygen Delivery Room Air 11/15/24 02:54 Discharge Plan Discharge Clinical Impression: Encounter for medical screening examination Patient Disposition: Home, Self-Care Condition: Stable Instructions: Antibiotic Form Additional Instructions: At this time your exam not show any evidence of foreign body retained. Please follow-up with your primary care provider as needed if you have worsening symptoms please return to the emergency department. Patient Language: Citizen Of [place] Prescriptions: No Action benzonatate 200 mg capsule 200 mg PO TID PRN (Reason: cough) Qty: 21 0RF ondansetron 4 mg tablet,disintegrating 4 mg PO Q8H PRN (Reason: nausea and vomiting) Qty: 10 0RF acetaminophen [Tylenol Extra Strength] 500 mg tablet 1,000 mg PO Q6H PRN (Reason: pain) Qty: 50 0RF lidocaine 5 % adhesive patch,medicated 1 patch topical DAILY Qty: 15 0RF Rx Instructions: leave on most painful area for up to 12 hrs ibuprofen 600 mg tablet 600 mg PO TID PRN (Reason: fever or pain) Qty: 30 0RF Follow-up/Referrals: UNKNOWN,DOCTOR [Primary Care Provider] - Time of Disposition: 05:24
--- OUTSIDE RECORDS SUMMARY | 2024-11-15 05:32 | XMS_ITS | Clinical Summary ---
Author Organization [facility] Address [address] [place] [address] Care Team Providers Care Copier Repair Technician Name Role Phone Surekha Martinez MD Primary Care Provider [phone] Allergies No known active allergies Medications penicillin [...] 81.6 kg (180 lb) 10/23/2019 4:09 PM TERMINAL MAKEUP OPERATOR Height 149.9 cm (4' 11 ) 10/23/2019 4:09 PM TERMINAL MAKEUP OPERATOR Body Mass Index 36.36 10/23/2019 4:09 PM TERMINAL MAKEUP OPERATOR Plan of Treatment Health Maintenance Due Date [...] patient's age to complete this topic Insurance [address] Care Teams Copier Repair Technician Relationship Specialty Start Date End Date Surekha Martinez MD PCP - General 01/25/17
--- OUTSIDE RECORDS SUMMARY | 2024-11-15 05:32 | XMS_ITS | Clinical Summary ---
Author Organization [facility] Address [address] [place] [phone] Phone Care Team Providers Care Job Recruiter Name Role Phone Tomasz Allen MD Primary [...] 74.8 kg (165 lb) 08/08/2023 3:13 PM RETAIL WIRELESS ASSOCIATE Height - - Body Mass Index - [...] Insurance MEDICAID [employer] Care Teams Job Recruiter Relationship Specialty Start Date End Date Tomasz Allen MD PCP - General Analysis Engineer 06/18/23
--- OUTSIDE RECORDS SUMMARY | 2024-11-15 05:32 | XMS_ITS | Encounter Summary ---
Author Organization [facility] Healthcare Address [address] [place] [address] Care Team Providers Care Produce Team Member Name Role Phone Tomasz Allen MD Primary Care Provider [phone] Reason for Visit * Reason Comments Foreign Body Pt has a tampon lodg ed in her vagina and can not get it out Encounter Details Date Type Department Care Team (Late st Contact Info) Description 11/15/2024 12:32 AM CDT - 11/15/2024 2:21 AM CDT Emergency [facility] Emergency Department [address] [place] [address] Tree Johnson MD [address] [place] [address] Discharge Disposition: Left Against Medical Advice [...] on file Legal Sex Female 1:54 AM MATE FOURTH Gender Identity Not on file Sexual Orientation [...] on filedocumented in this encounter Care Teams Produce Team Member Relationship Specialty Start Date End Date Tomasz Allen MD [address] [place] [address] PCP - General 01/07/20 documented as of this encounter
--- OUTSIDE RECORDS SUMMARY | 2024-11-15 05:32 | XMS_ITS | Clinical Summary ---
Author Organization [facility] Address [address] [place] [address] Care Team Providers Care Lamina Searcher Name Role Phone Tomasz Allen MD Primary Care Provider [phone] Allergies No known active allergies Medications [email or web address] [...] CDT - 11/15/2024 2:21 AM CDT Emergency [facility] Emergency Department [address] [place] [address] Tree Johnson MD Discharge Disposition: Left Against Medical Advice 10/11/2024 Telephone [facility] [address] [place] [address] Nelly Messina LPN 10/09/2024 Orders Only [facility] [address] [place] [address] Karli Ndiaye DO 10/09/2024 Telephone [facility] [address] [place] [address] Karli Nidaye DO Vaginitis/Bacterial Vaginosis 10/08/2024 1:50 PM MRI SUPERVISOR Lab [facility] [address] [place] [address] Screening for STDs (sexually transmitted diseases) 10/08/2024 1:37 PM MRI SUPERVISOR - 10/08/2024 11:59 PM MRI SUPERVISOR Hospital Encounter [address] [address] Screening for malignant neoplasm of cervix; Screen for sexually transmitted diseases Discharge Disposition: Discharge to home or self care 10/08/2024 1:00 PM MRI SUPERVISOR [facility] [address] [place] [address] Karli Ndiaye DO Encounter for annual routine gynecological examination (Primary Dx); Screen for sexually transmitted diseases; Screening for malignant neoplasm of cervix; Hidradenitis suppurativa 10/08/2024 [facility] [address] [place] [address] Karli Ndiaye DO Screening for STDs (sexually [...] on file Legal Sex Female 1:54 AM MRI SUPERVISOR Gender Identity Not on file Sexual Orientation [...] PLUS P24 ANTIGEN Routine 10/08/2024 3:13 PM MRI SUPERVISOR Screening for STDs (sexually transmitted diseases) HEPATITIS C ANTIBODY Routine 10/08/2024 1:45 PM MRI SUPERVISOR Screening for STDs (sexually transmitted diseases) RPR Routine 10/08/2024 1:45 PM MRI SUPERVISOR Screening for STDs (sexually transmitted diseases) HEPATITIS B SURFACE ANTIGEN Routine 10/08/2024 1:45 PM MRI SUPERVISOR Screening for STDs (sexually transmitted diseases) PAP AND HIGH RISK HPV, REFLEX TO GENOTYPING Routine 10/08/2024 10:03 AM MRI SUPERVISOR Screening for malignant neoplasm of cervix HIGH RISK HPV DNA DETECTION WITH GENOTYPING Routine 10/08/2024 9:00 AM MRI SUPERVISOR Screening for malignant neoplasm of cervix TRICHOMONAS VAGINALIS PCR Routine 10/08/2024 9:00 AM MRI SUPERVISOR Screen for sexually transmitted diseases N. GONORRHOEAE/C. TRACHOMATIS AMPLIFICATION Routine 10/08/2024 9:00 AM MRI SUPERVISOR Screen for sexually transmitted diseases from Last 3 Months Results * HIV 1/2 Antibody plus p24 Antigen Blood (10/08/2024 3:13 PM MRI SUPERVISOR) HIV 1/2 ab + p24 ag Nonreactive Nonreactive Comment: Nonreactive for HIV-1 antigen and HIV-1/HIV-2 antibodies. No laboratory evidence of HIV infection. If acute HIV infection is suspected, consider testing for HIV-1 RNA. Testing performed by: [facility], [address] [place] [address]., [address] Blood 10/08/2024 3:13 PM MRI SUPERVISOR 10/08/2024 6:51 PM MRI SUPERVISOR Karli Ndiaye DO LAB MICROBIOLOGY - GENE RAL ORDERABLES Final Result VIN [address] [facility] [place] [address] * Hepatitis C antibody Blood (10/08/2024 1:45 PM MRI SUPERVISOR) Hep C Ab Nonreactive Nonreactive Comment: Interpretive [...] revised on 2019. Testing performed by: [facility], [address] [place] [address]., [address] Blood 10/08/2024 1:45 PM MRI SUPERVISOR 10/08/2024 9:00 PM MRI SUPERVISOR Karli Ndiaye DO LAB MICROBIOLOGY - GENE RAL ORDERABLES Final Result Performing Organization Address City/[facility]/ZIP Co de Phone Number VIN LOMBARDI [address] [address] [employer] [place] [address] * RPR Blood (10/08/2024 1:45 PM MRI SUPERVISOR) RPR Nonreactive Nonreactive Comment:Testing performed by : [facility], [address] [place] [address]., [id number] Blood 10/08/2024 1:45 PM MRI SUPERVISOR 10/08/2024 9:00 PM MRI SUPERVISOR Karli Ndiaye DO LAB MICROBIOLOGY - GENE RAL ORDERABLES Final Result Performing Organization Address [facility] Co de Phone Number VIN [address] [address] [facility] [employer] [place] [address] * Hepatitis B Surface Antigen Blood (10/08/2024 1:45 PM MRI SUPERVISOR) HepBsAg Nonreactive Nonreactive Comment:Testing performed by : [facility], [address] [place] [address]., [address] Blood 10/08/2024 1:45 PM MRI SUPERVISOR 10/08/2024 9:00 PM MRI SUPERVISOR Karli Ndiaye DO LAB MICROBIOLOGY - GENE RAL ORDERABLES Final Result Performing Organization Address City/[facility] Co de Phone Number VIN LOMBARDI [address] [facility] [employer] [place] [place] [address] * Pap and High Risk HPV and Genotyping (Cytology Component) (10/08/2024 10:03 AM MRI SUPERVISOR) Thin prep (Pap test) 10/08/2024 10:03 AM MRI SUPERVISOR 10/08/2024 10:03 AM MRI SUPERVISOR Narrative PATHOLOGY CH - 10/10/2024 3:39 PM MRI SUPERVISOR [facility] Department of Pathology [address] [place] [address] Final Report with Addendum Note to Patients: [...] the details. Patient Name: ERICA LAMAR Address: [address] [place] [address] Gender: F : 1995 (Age: 29) Service: Location: Hospital #: [id number] Patient Type: SPECIMEN Taken: 10/08/2024 Received: 10/08/2024 [...] this test have been verified by the [facility] Molecular Infectious Disease laboratory. Correlate [...] by the Surgical Pathology Department at [facility] as part of an ongoing quality engineer medical device program and in compliance with federally mandated [...] characteristics determined by the Surgical Pathology Department [facility]. It has not been cleared or approved by the U. S. Food and Drug Administration. Karli Ndiaye DO LAB CYTOLOGY ORDERABLES Final Result PATHOLOGY [address] [place] [address] * High Risk HPV DNA Detection with Genotyping (Molecular component) (10/08/2024 9:00 AM MRI SUPERVISOR) HPV HR 16 Not Detected Not Detected [facility] Comment:Testing performed by : [facility], [address] [place]., [address] HPV HR 18 Not Detected Not Detected VIN Comment:Testing performed by : [facility], [address] [place]., [address] HPV HR Non 16/18 Not Detected Not [...] this test have been verified by the [facility] Molecular Infectious Disease laboratory. Correlate with separately reported cytology results, as applicable. Interpretive data last revised 23 Testing performed by: [facility], [address] [place]., [address] Endocervical 10/08/2024 9:00 AM MRI SUPERVISOR 10/09/2024 3:06 PM MRI SUPERVISOR Narrative VIN - 10/10/2024 4:04 AM MRI SUPERVISOR Clinical history and diagnosis->Liquid-based PAP test with high risk HPV test- Z12.4 Number of vials->1 Testing type->Screening Last menstrual period (date if known)->09/22/24 Karli Ndiaye DO LAB BODY FLUIDS AND STO OLS ORDERABLES Final Result VIN LOMBARDI [address] [address] Department [employer] [place], [place] [id number] [facility] * N. gonorrhoeae/C. trachomatis Amplification Thin prep-Endocervical (10/08/2024 9:00 AM MRI SUPERVISOR) C. trachomatis Not Detected [facility] Comment:Testing performed by : [facility], [address] [place] [address]., [address] N. gonorrhoeae Not Detected VIN LOMBARDI Comment: Interpretive Data This assay detects Chlamydia trachomatis and Neisseria gonorrhoeae by nucleic acid amplification testing (NAAT). This assay has been cleared by the [place] Food and Drug administration. The performance characteristics of this test have been verified by the [facility] Molecular Infectious Disease laboratory. The performance characteristics of this test have not been evaluated in individuals less than 14 years of age. Current Interpretive Data was last revised on 2023. Testing performed by: [facility], [address] [place] [address]., [address] Thin prep-Endocervica l 10/08/2024 9:00 AM MRI SUPERVISOR 10/09/2024 3:06 PM MRI SUPERVISOR Karli Ndiaye DO LAB MICROBIOLOGY - GENE RAL ORDERABLES Final Result Performing Organization Address City/[facility]/ZIP Co de Phone Number VIN LOMBARDI [address] [address] Department [employer] [place] [place] [address] [facility] * Trichomonas vaginalis PCR Thin prep-Endocervical (10/08/2024 9:00 AM MRI SUPERVISOR) Trichomonas DNA Not Detected [facility] Comment: Interpretive Data This assay detects Trichomonas vaginalis by nucleic acid amplification testing (NAAT). This assay has been cleared by the [place] Food and Drug administration. The performance characteristics of this test have been verified by the [facility] Molecular Infectious Disease laboratory. The performance of this test has not been evaluated in individuals less than 18 years of age. Current Interpretive Data was last revised on 2023. Testing performed by: [facility], [address] [place]., [address] Thin prep-Endocervica l 10/08/2024 9:00 AM MRI SUPERVISOR 10/09/2024 3:06 PM MRI SUPERVISOR Karli Ndiaye DO LAB MICROBIOLOGY - GENE RAL ORDERABLES Final Result VIN LOMBARDI [address] [address] [place] [address] [facility] from Last [address] [address] [facility] [address] Care Teams Lamina Searcher Relationship Specialty Start Date End Date Tomasz Allen MD [address] [place] [address] PCP - General 01/07/20
--- OUTSIDE RECORDS SUMMARY | 2024-11-15 05:32 | XMS_ITS | Referral Summary ---
Author Organization [facility] Address [address] [place] [address] Care Team Providers Care Supervisor Engraving Name Role Phone Tomasz Allen MD Primary Care Provider [phone] Encounters Date Type Department Care Team Description 11/15/2024 12:32 AM CDT - 11/15/2024 2:21 AM CDT Emergency [facility] Emergency Department 1 [place] [address] Tree Johnson MD Discharge Disposition: Left Against Medical Advice 10/11/2024 Telephone [facility] [place] [facility] [address] [place] [address] Nelly Messina LPN 10/09/2024 Orders Only [facility] [address] [place] [address] Karli Ndiaye DO 10/09/2024 Telephone [facility] Medical [facility] [address] [place] [address] Karli Ndiaye, Vaginitis/Bacterial Vaginosis 10/08/2024 1:37 PM WATCH TECHNICIAN - 10/08/2024 11:59 PM WATCH TECHNICIAN Hospital Encounter [address] [address] Screening for malignant neoplasm of cervix; Screen for sexually transmitted diseases Discharge Disposition: Discharge to home or self care 10/08/2024 1:50 PM WATCH TECHNICIAN Lab [facility] [address] [place] [address] Screening for STDs (sexually transmitted diseases) 10/08/2024 Orders Only [facility] [address] [place] [address] Karli Ndiaye, Screening for STDs (sexually transmitted diseases) (Primary Dx) 10/08/2024 1:00 PM WATCH TECHNICIAN Office Visit [facility] [address] [place] [address] Karli Ndiaye DO Encounter for annual routine [...] on file Legal Sex Female 1:54 AM WATCH TECHNICIAN Gender Identity Not on file Sexual Orientation [...] PLUS P24 ANTIGEN Routine 10/08/2024 3:13 PM WATCH TECHNICIAN Screening for STDs (sexually transmitted diseases) HEPATITIS C ANTIBODY Routine 10/08/2024 1:45 PM WATCH TECHNICIAN Screening for STDs (sexually transmitted diseases) RPR Routine 10/08/2024 1:45 PM WATCH TECHNICIAN Screening for STDs (sexually transmitted diseases) HEPATITIS B SURFACE ANTIGEN Routine 10/08/2024 1:45 PM WATCH TECHNICIAN Screening for STDs (sexually transmitted diseases) PAP AND HIGH RISK HPV, REFLEX TO GENOTYPING Routine 10/08/2024 10:03 AM WATCH TECHNICIAN Screening for malignant neoplasm of cervix HIGH RISK HPV DNA DETECTION WITH GENOTYPING Routine 10/08/2024 9:00 AM WATCH TECHNICIAN Screening for malignant neoplasm of cervix TRICHOMONAS VAGINALIS PCR Routine 10/08/2024 9:00 AM WATCH TECHNICIAN Screen for sexually transmitted diseases N. GONORRHOEAE/C. TRACHOMATIS AMPLIFICATION Routine 10/08/2024 9:00 AM WATCH TECHNICIAN Screen for sexually transmitted diseases from Last 3 Months Results * HIV 1/2 Antibody plus p24 Antigen Blood (10/08/2024 3:13 PM WATCH TECHNICIAN) HIV 1/2 ab + p24 ag Nonreactive Nonreactive Comment: Nonreactive for HIV-1 antigen and HIV-1/HIV-2 antibodies. No laboratory evidence of HIV infection. If acute HIV infection is suspected, consider testing for HIV-1 RNA. Testing performed by: [facility], [address] [place] [address], [place]., [address] Blood 10/08/2024 3:13 PM WATCH TECHNICIAN 10/08/2024 6:51 PM WATCH TECHNICIAN Karli Ndiaye DO LAB MICROBIOLOGY - GENE RAL ORDERABLES Final Result Performing Organization Address [facility] Co de Phone Number VIN LOMBARDI [address] [facility] [place] [address] * Hepatitis C antibody Blood (10/08/2024 1:45 PM WATCH TECHNICIAN) Hep C Ab Nonreactive Nonreactive Comment: Interpretive [...] last revised on 2019. Testing performed by: [facility], [address] [place] [address]., [address] Blood 10/08/2024 1:45 PM WATCH TECHNICIAN 10/08/2024 9:00 PM WATCH TECHNICIAN Karil Ndiaye DO LAB MICROBIOLOGY - GENE RAL ORDERABLES Final Result Performing Organization Address [facility] de Phone Number VIN [address] [address] [facility] [place] [address] * RPR Blood (10/08/2024 1:45 PM WATCH TECHNICIAN) RPR Nonreactive Nonreactive Comment:Testing performed by : [facility], [address] [place] [address]., [address] Blood 10/08/2024 1:45 PM WATCH TECHNICIAN 10/08/2024 9:00 PM WATCH TECHNICIAN Karli Ndiaye DO LAB MICROBIOLOGY - GENE RAL ORDERABLES Final Result Performing Organization Address [facility] Co de Phone Number VIN [address] [place] [address] * Hepatitis B Surface Antigen Blood (10/08/2024 1:45 PM WATCH TECHNICIAN) HepBsAg Nonreactive Nonreactive Comment:Testing performed by : [facility], [address] [place] [address]., [address] Blood 10/08/2024 1:45 PM WATCH TECHNICIAN 10/08/2024 9:00 PM WATCH TECHNICIAN us Karli Ndiaye DO LAB MICROBIOLOGY - GENE RAL ORDERABLES Final Result VIN [address] [place] [address] * Pap and High Risk HPV and Genotyping (Cytology Component) (10/08/2024 10:03 AM WATCH TECHNICIAN) Thin prep (Pap test) 10/08/2024 10:03 AM WATCH TECHNICIAN 10/08/2024 10:03 AM WATCH TECHNICIAN Narrative PATHOLOGY - 10/10/2024 3:39 PM WATCH TECHNICIAN [facility] Department of Pathology [address] [place] [address] Final Report with Addendum Note to [...] the details. Patient Name: ERICA LAMAR Address: [address] [place] [address] Gender: F : 1995 (Age: 29) Service: Location: N : [id number] [facility] #: [id number] Patient Type: SPECIMEN Taken: 10/08/2024 Received: 10/08/2024 [...] this test have been verified by the [facility] Molecular Infectious Disease laboratory. Correlate with reported [...] determined by the Surgical Pathology Department at [facility] as part of an ongoing clinical quality manager program and in compliance with federally mandated [...] characteristics determined by the Surgical Pathology Department [facility]. It has not been cleared or approved by the U. S. Food and Drug Administration. Karli Ndiaye DO LAB CYTOLOGY ORDERABLES Final Result Performing Organization Address City/State/[facility] Co de Phone Number PATHOLOGY [address] [place] [address] * High Risk HPV DNA Detection with Genotyping (Molecular component) (10/08/2024 9:00 AM WATCH TECHNICIAN) HPV HR 16 Not Detected Not Detected [facility] Comment:Testing performed by : [facility], [address] [place]., [address] HPV HR 18 Not Detected Not Detected VIN Comment:Testing performed by : [facility], [address] [place]., [address] HPV HR Non 16/18 Not Detected Not [...] this test have been verified by the [facility] Molecular Infectious Disease laboratory. Correlate with separately reported cytology results, as applicable. Interpretive data last revised 23 Testing performed by: [facility], [address] [place]., [address] Endocervical 10/08/2024 9:00 AM WATCH TECHNICIAN 10/09/2024 3:06 PM WATCH TECHNICIAN Narrative [facility] - 10/10/2024 4:04 AM WATCH TECHNICIAN Clinical history and diagnosis->Liquid-based PAP test with high risk HPV test- Z12.4 Number of vials->1 Testing type->Screening Last menstrual period (date if known)->09/22/24 Karli Ndiaye DO LAB BODY FLUIDS AND STO OLS ORDERABLES Final Result VIN [address] [address] Department [place] [address] [facility] * N. gonorrhoeae/C. trachomatis Amplification Thin prep-Endocervical (10/08/2024 9:00 AM WATCH TECHNICIAN) C. trachomatis Not Detected [facility] Comment:Testing performed by : [facility], [address] [place] [address], [place]., [address] N. gonorrhoeae Not Detected VIN Comment: Interpretive Data This assay detects Chlamydia trachomatis and Neisseria gonorrhoeae by nucleic acid amplification testing (NAAT). This assay has been cleared by the [place] Food and Drug administration. The performance characteristics of this test have been verified by the [facility] Molecular Infectious Disease laboratory. The performance characteristics of this test have not been evaluated in individuals less than 14 years of age. Current Interpretive Data was last revised on 2023. Testing performed by: [facility], [address] [place] [address], [place]., [address] Thin prep-Endocervica l 10/08/2024 9:00 AM WATCH TECHNICIAN 10/09/2024 3:06 PM WATCH TECHNICIAN Karli Ndiaye DO LAB MICROBIOLOGY - GENE RAL ORDERABLES Final Result Performing Organization Address [facility]/State/ZIP Co de Phone Number VIN LOMBARDI [address] [address] [place] [address] [facility] * Trichomonas vaginalis PCR Thin prep-Endocervical (10/08/2024 9:00 AM WATCH TECHNICIAN) Trichomonas DNA Not Detected [facility] Comment: Interpretive Data This assay detects Trichomonas vaginalis by nucleic acid amplification testing (NAAT). This assay has been cleared by the [place] Food and Drug administration. The performance characteristics of this test have been verified by the [facility] Molecular Infectious Disease laboratory. The performance of this test has not been evaluated in individuals less than 18 years of age. Current Interpretive Data was last revised on 2023. Testing performed by: [facility], [address] [place]., [address] Thin prep-Endocervica l 10/08/2024 9:00 AM WATCH TECHNICIAN 10/09/2024 3:06 PM WATCH TECHNICIAN Karli Ndiaye DO LAB MICROBIOLOGY - GENE RAL ORDERABLES Final Result Performing Organization Address [facility] Co de Phone Number VIN LOMBARDI [address] [address] Department [place] [address] [facility] from Last 3 Months Insurance [facility] [id number] [place] [address] Care Teams Supervisor Engraving Relationship Specialty Start Date End Date Allen, Tomasz, MD [address] [place] [address] PCP - General 01/07/20
--- OUTSIDE RECORDS SUMMARY | 2024-11-15 05:32 | XMS_ITS | Clinical Summary ---
Author Organization [facility] [employer] Address [address] [place] [address] Care Team Providers Care Correspondence Renew Clerk Name Role Phone Unavailable Primary Care Provider Unavailabl e Source Comments [facility],non-owned Affiliates and Associated Physician Practices is amultiple site organization consisting of ambulatory clinics and hospital sitesin [place], [place], [place] and [place]. This disclosure is being madepursuant to the Care Everywhere program and may not contain all information available regarding this patient. Last updated 18.[facility] [employer] Social History Tobacco Use Types Packs/Day Years [...]
[2024-11-15 05:55] VITALS: BP 128/64; PULSE 92; RESP 16; O2SAT 97
== END 2024-11-15 05:55 | disposition home or self-care (01) ==
LOC: ANHED 05:30
PROVIDERS: Emergency Provider Emergency Medicine
DX: Z03.823 Encounter for observation for suspected inserted (injected) foreign body ruled out (principal)
CPT/HCPCS: 99281; 99284